=== PATIENT | female | born 1980 | race Two or more races ===

== ENCOUNTER 2024-10-03 05:24 | Inpatient (IN) | payer OTHER ==
[~2024-10-03] VITALS: Ht 162.6 cm; Wt 66.0 kg
[2024-10-03] MEDS: IPRATROPIUM BROM 0.5 MG/2.5ML INH SOL NEB ONE (05:44)
[2024-10-03] MEDS: ALBUTEROL SULF 2.5 MG/0.5ML(0.5%) NEB SOLN NEB ONE (05:44)
[2024-10-03] MEDS: NITROGLYCERIN 50MG/250ML 250 ML IV ONE (06:00)
[2024-10-03 06:37] VITALS: PULSE 67; RESP 10; O2SAT 98
[2024-10-03 06:37] LABS: Basophils # (auto) 0 10 ^3/uL (0-0.2); Eosinophils # (auto) 0.1 10 ^3/uL (0-0.8); Monocytes # (auto) 0.4 10 ^3/uL (0-1.3); White Blood Cell 5.1 10^3/uL (4.4-10.8)
--- NOTE | 2024-10-03 06:37 | DVH ---
CHEST RADIOGRAPH Indication: SOB Technique: Single frontal view of the chest was obtained Comparison: None IMPRESSION: There are low lung volumes with moderate pulmonary vascular congestion and bilateral alveolar airspac e opacities. No sizable effusion or pneumothorax. Right dialysis catheter within the cavoatrial junc tion.
[2024-10-03 06:39] LABS: Basophils % (auto) 0.6 % (0.0-2.0); Eosinophils % (auto) 1.3 % (0.0-7.0); Hematocrit 25.2 % (36.0-46.0); Lymphocytes # (auto) 0.7 10 ^3/uL (0.4-5.4); Lymphocytes % (auto) 12.7 % (10.0-50.0); Mean Corpuscular Hemoglobin 28.2 pg (28.0-32.0); Mean Corpuscular Hgb Conc. 31.6 g/dL (32.0-36.0); Mean Corpuscular Volume 89.3 fL (80.0-100.0); Monocytes % (auto) 8.1 % (0.0-12.0); Neutrophils % (auto) 77.3 % (37.0-80.0); Platelet Count (auto) 185 10^3/uL (140-450); Red Blood Cells 2.83 10^6/uL (4.0-5.20)
[2024-10-03 06:52] LABS: Alkaline Phosphatase 72 U/L (46-116); Anion Gap 5 (5-15); Aspartate Aminotransferase 14 U/L (13-40); BUN/Creatinine Ratio 5.5 (10.0-20.0); Calcium 9.6 mg/dL (8.7-10.4); Carbon Dioxide 28 mmol/L (20-31); Chloride 104 mmol/L (98-107); Potassium 4.3 mmol/L (3.5-5.1); Sodium 137 mmol/L (136-145)
[2024-10-03 06:53] LABS: Total Protein 6.7 g/dL (5.7-8.2)
[2024-10-03 06:57] LABS: INR 1.05 (0.9-1.15); Partial Thromboplastin Time 27.8 SEC (24.5-34.5); Prothrombin Time 11.1 sec (9.3-11.8)
--- NOTE | 2024-10-03 07:32 | ED.PDOC ---
History of Present Illness HPI Comments 43 y/o F, with a Hx of ESRD w/HD T//FRI, is BIBA for c/o chest pain and shortness of breath, today. Patient, at time of assessment, is tired-appearing and a poor-historian and endorses on sudden and unprovoked onset of symptoms last night. She states on pain and difficulty breathing subsiding since then but is unable to elaborate on whether she was given any Tx by EMS or ED staff prior to evaluation. Per EMS report, patient was found on scene with diminished lung sounds, with a SpO2 of 70%RA and placed on 15L O2 en route in addition to her last reported dialysis session being 10/02/24. Patient has no additional reported associated symptoms or modifiers. Further Hx cannot be obtained, currently, due to patient's condition and absence of family/separator tender historians. Chief Complaint: Shortness of Breath Time Seen by MD: 07:10 Reviewed Notes: Nurses Notes, Plsql Developer Notes, Medications, Allergies Allergies: Coded Allergies: NO KNOWN ALLERGIES (Unverified , 10/03/24) Information Source: Patient, Emergency Med Personnel Mode of Arrival: Ambulatory Severity: Moderate Timing: Hours Duration: Since onset Prehospital treatment: 12 Lead EKG, Bar Pointer, Oxygen Past Medical History PAST MEDICAL HISTORY: ESRD (w/HD //FRI) Surgical History: Denies all surgeries THERMOSTAT MAKER History: Denies all THERMOSTAT MAKER Hx Family History Family History: Unknown Social History Smoker: Non-Smoker Alcohol: Denies ETOH Use Drugs: Denies Drug Use Lives In: Home Respiratory: reports: shortness of breath Cardiovascular: reports: chest pain All Other Systems: Reviewed and Negative (negative unless otherwise stated above or in HPI) Physical Exam General Appearance: No Apparent Distress, Normal, Other (somnolent) HEENT: Normal ENT Inspection, Pharynx Normal, TMs Normal Neck: Full Range of Motion, Non-Tender, Normal, Normal Inspection Respiratory: Chest Non-Tender, Lungs Clear, No Accessory Muscle Use, No Respiratory Distress, Normal Breath Sounds Cardiovascular: No Edema, No JVD, No Murmur, No Gallop, Normal Peripheral Pulses, Regular Rate/Rhythm Breast Exam: Deferred Gastrointestinal: No Organomegaly, Non Tender, No Pulsatile Mass, Normal Bowel Sounds, Soft Genitalia: Deferred Pelvic: Deferred Rectal: Deferred Extremities: No calf tenderness, Normal capillary refill, Normal inspection, Normal range of motion, Non-tender, No pedal edema Musculoskeletal : Apperance: Normal Neurologic: Alert, mechanic welder II-XII nml as Tested, No Motor Deficits, Normal Affect, Normal Mood, No Sensory Deficits Cerebellar Function: Normal Reflexes: Normal Skin: Dry, Normal Color, Warm Lymphatic: No Adenopathy Was a procedure done? Was a procedure done?: No EKG EKG : Pulse Rate (adult): 69 [place]: Normal Cardiac Rhythm: NSR Block: None Hypertrophy: None ST: Normal Differential Dx Considerations may include: AL, PE, ACS, angina, costochondritis, pericarditis, gastritis, gastroenteritis, anxiety, musculoskeletal pain X-Ray, Labs, Meds, VS Vital Signs Date Time Temp Pulse Resp B/P (MAP) Pulse Ox O2 Delivery O2 Flow Rate FiO2 10/03/24 07:34 17 144/91 (108) 99 10/03/24 07:32 69 10/03/24 07:00 17 135/84 (101) 100 10/03/24 06:37 67 10 98 Nasal Cannula* 6 44 10/03/24 06:34 98.8 10 148/101 (117) 98.8 10/03/24 06:00 149/97 10/03/24 05:32 69 10/03/24 05:30 98.6 83 28 184/128 (146) 92 Lab Test 10/03/24 06:27 Range/Units White Blood Count 5.1 4.4-10.8 10^3/uL Red Blood Count 2.83 L 4.0-5.20 10^6/uL Hemoglobin 8.0 L 12.2-16.2 g/dL Hematocrit 25.2 L 36.0-46.0 % Mean Corpuscular Volume 89.3 80.0-100.0 fL Mean Corpuscular Hemoglobin 28.2 28.0-32.0 pg Mean Corpuscular Hemoglobin Concent 31.6 L 32.0-36.0 g/dL Red Cell Distribution Width 18.0 H 11.8-14.3 % Platelet Count 185 140-450 10^3/uL Mean Platelet Volume 7.6 6.9-10.8 fL Neutrophils (%) (Auto) 77.3 37.0-80.0 % Lymphocytes (%) (Auto) 12.7 10.0-50.0 % Monocytes (%) (Auto) 8.1 0.0-12.0 % Eosinophils (%) (Auto) 1.3 0.0-7.0 % Basophils (%) (Auto) 0.6 0.0-2.0 % Neutrophils # (Auto) 4.0 1.6-8.6 10 ^3/uL Lymphocytes # (Auto) 0.7 0.4-5.4 10 ^3/uL Monocytes # (Auto) 0.4 0-1.3 10 ^3/uL Eosinophils # (Auto) 0.1 0-0.8 10 ^3/uL Basophils # (Auto) 0 0-0.2 10 ^3/uL Nucleated Red Blood Cells 0.0 % Prothrombin Time 11.1 9.3-11.8 sec Prothrombin Time INR 1.05 0.9-1.15 Activated Partial Thromboplast Time 27.8 24.5-34.5 SEC Sodium Level 137 136-145 mmol/L Potassium Level 4.3 3.5-5.1 mmol/L Chloride Level 104 98-107 mmol/L Carbon Dioxide Level 28 20-31 mmol/L Anion Gap 5 5-15 Blood Urea Nitrogen 37 H 9-23 mg/dL Creatinine 6.76 H 0.550-1.02 mg/dL Glomerular Filtration Rate Calc 7 >90 mL/min BUN/Creatinine Ratio 5.5 L 10.0-20.0 Serum Glucose 116 H 74-106 mg/dL Calcium Level 9.6 8.7-10.4 mg/dL Total Bilirubin 0.2 0.2-1.0 mg/dL Aspartate Amino Transferase (AST) 14 13-40 U/L Alanine Aminotransferase (ALT) < 9 7-40 U/L Alkaline Phosphatase 72 46-116 U/L Troponin I High Sensitivity 27 </=34 ng/L B-Type Natriuretic Peptide > 5000.00 0-100 pg/mL Total Protein 6.7 5.7-8.2 g/dL Albumin 2.9 L 3.2-4.8 g/dL Current Medications Medications (Trade) Dose Ordered Sig/Susie Route Start Time Stop Time Status Last Admin Albuterol (Ventolin Medneb) 2.5 mg ONCE ONCE NEB 10/03/24 05:45 10/03/24 05:46 DC 10/03/24 05:44 Ipratropium [place] (Atrovent Medneb) 0.5 mg ONCE ONCE NEB 10/03/24 05:45 10/03/24 05:46 DC 10/03/24 05:[address] [address] Ph: [phone] DIAGNOSTIC IMAGING Diagnostic Imaging Report : [id number] Signed PATIENT: NOLAN DUTTON ACCT: [id number] UNIT: [id number] : 1980 LOC: ER ROOM / BED: / AGE / SEX: 43 / F ADM STATUS: REG ER SERVICE 0 ORDERING PHYSICIAN: ORACIO CABEZAS MD PROCEDURE(s): CXRP - CHEST PORTABLE REASON: SOB ORDER NUMBER(s): [id number], ACCESSION NUMBER(s): [id number] CHEST RADIOGRAPH Indication: SOB Technique: Single frontal view of the chest was obtained Comparison: None IMPRESSION: There are low lung volumes with moderate pulmonary vascular congestion and bilateral alveolar airspace opacities. No sizable effusion or pneumothorax. Right dialysis catheter within the cavoatrial junction. ATED BY: RENETTA DONG MD DICTATED DATE/TIME: 10/03/24635 SIGNED BY: RENETTA DONG MD SIGNED DATE/TIME: 10/03/24635 CC: X-Ray, Labs, Meds, VS Comment This 43-year-old female presents secondary to now resolved chest pain that began last night. The time I ED, the patient was somnolent but denied any complaints. She denies such things as headaches convincing, chest pain, shortness of breath, fever, chills, sweats, nausea or vomiting. Her work. Significant for a substantially elevated BNP greater than 5000. This is consistent with his history of being short of breath per EMS, Time of 1ST Reevaluation: 07:40 Reevaluation 1ST: Unchanged Patient Education/Counseling: Diagnosis, Treatment Family Education/Counseling: No Family Present Departure 1 Departure Impression: Primary Impression: CHF (congestive heart failure) Critical Care Note Critical Care Time?: No Stability Stability form required: No Heart Score Heart Score: Heart Score Response (Comments) Value History N/A 0 EKG N/A 0 Age N/A 0 Risk Factors N/A 0 Troponin N/A 0 Total 0 I personally scribed for MALOU TURCIOS MD ([email or web address]) on 10/03/24 at 07:32. Electronically submitted by John Chavez ([email or web address]). MALOU TURCIOS MD Oct 03, 2024 07:32
[2024-10-03 07:33] LABS: Blood Urea Nitrogen 37 mg/dL (9-23); Glucose 116 mg/dL (74-106)
[2024-10-03 07:34] LABS: Alanine Aminotransferase < 9 U/L (7-40); Albumin 2.9 g/dL (3.2-4.8); Bilirubin, Total 0.2 mg/dL (0.2-1.0)
[2024-10-03 09:14] LABS: Base Excess 2.3 mmol/L (-2.0-3.0)
[2024-10-03 09:20] VITALS: PULSE 59; RESP 16; O2SAT 99
[2024-10-03] MEDS ORDERED: ACETAMINOPHEN 325 MG TAB PO PRN (15:30)
[2024-10-03] MEDS ORDERED: HYDROcodone-ACET 5/325MG TAB PO PRN (15:30)
[2024-10-03] MEDS ORDERED: MORPHINE SULFATE INJ 2 MG/ml SYRG IV PRN (15:30)
[2024-10-03] MEDS ORDERED: ONDANSETRON HCL 4 MG/2 ML VIAL IV PRN (15:30)
--- NOTE | 2024-10-03 15:38 | DVHHP2 ---
History of Present Illness History of Present Illness 43 y/o F, with a Hx of ESRD w/HD T//SAT, is BIBA for c/o shortness of breath x1 day. Patient has been on dialysis for long time, most recently about 3 months ago was switched from PD dialysis to right IJ tunnel cath dialysis. Patient is from [place] traveling to visit family. She received dialysis on yesterday 10/02/2024 and was supposed to fly out back home today but developed shortness of breath at not feel safe to fly out. Shortness of bed started while trying to sleep. She had unprovoked onset of symptoms last night. She states on pain and difficulty breathing subsiding since then but is unable to elaborate on whether she was given any Tx by EMS or ED staff prior to evaluation. Per EMS report, patient was found on scene with diminished lung sounds, with a SpO2 of 70%RA and placed on 15L O2 en route in addition to her last reported dialysis session being 10/02/24. Patient has no additional reported associated symptoms or modifiers. Denies cough, nausea/vomiting, diarrhea/constipation, rashes, upper respiratory symptoms (rhinorrhea, sore throat, dry cough). Review of Systems Review of Systems As per HPI Allergies: Coded Allergies: NO KNOWN ALLERGIES (Unverified , 10/03/24) Exam Vital Signs Vital Signs Date Time Temp Pulse Resp B/P (MAP) Pulse Ox O2 Delivery O2 Flow Rate FiO2 10/03/24 14:30 55 17 154/94 (114) 97 10/03/24 09:30 97.5 97.5 10/03/24 09:20 Nasal Cannula* 2 28 Exam GEN: Healthy appearing, well-developed, NAD. HEENT: NC/AT; MMM. CV: RRR, no m/r/g. LUNGS: Rales up to middle lobes bilaterally ABD: Soft, NT/ND, NBS, no masses or organomegaly. EXT: skin Warm, well perfused. no rashes. Pitting edema trace to +1 bilaterally NEURO: Ambulating with no limitations. No focal deficits. Labs/Xrays Labs Test 10/03/24 09:05 10/03/24 08:10 10/03/24 06:27 Range/Units Blood Gas Specimen Type Arterial Blood Gas Sample Site Right radial Blood Gas Patient Temperature 37.0 Arterial Blood Date Drawn Arterial Blood pH 7.450 7.350-7.450 Arterial Blood Partial Pressure CO2 38.9 32.0-45.0 mmHg Arterial Blood Partial Pressure O2 98.7 83.0-108.0 mmHg Arterial Blood HCO3 26.4 21.0-28.0 mmol/L Arterial Blood Oxygen Saturation 97.0 94.0-98.0 % Arterial Blood Base Excess 2.3 -2.0-3.0 mmol/L Arterial Blood Oxyhemoglobin 95.6 94.0-98.0 % Arterial Blood Carboxyhemoglobin 0.5 0.5-1.5 % Arterial Blood Methemoglobin 0.9 0.0-1.5 % Josh Test Yes Blood Gas Total Hemoglobin 9.00 L 12.0-16.0 g/dL Blood Gas Liter Flow 2.00 Blood Gas Modality Nasal cannula FiO2 % 28.0 White Blood Count 5.1 4.4-10.8 10^3/uL Red Blood Count 2.83 L 4.0-5.20 10^6/uL Hemoglobin 8.0 L 12.2-16.2 g/dL Hematocrit 25.2 L 36.0-46.0 % Mean Corpuscular Volume 89.3 80.0-100.0 fL Mean Corpuscular Hemoglobin 28.2 28.0-32.0 pg Mean Corpuscular Hemoglobin Concent 31.6 L 32.0-36.0 g/dL Red Cell Distribution Width 18.0 H 11.8-14.3 % Platelet Count 185 140-450 10^3/uL Mean Platelet Volume 7.6 6.9-10.8 fL Neutrophils (%) (Auto) 77.3 37.0-80.0 % Lymphocytes (%) (Auto) 12.7 10.0-50.0 % Monocytes (%) (Auto) 8.1 0.0-12.0 % Eosinophils (%) (Auto) 1.3 0.0-7.0 % Basophils (%) (Auto) 0.6 0.0-2.0 % Neutrophils # (Auto) 4.0 1.6-8.6 10 ^3/uL Lymphocytes # (Auto) 0.7 0.4-5.4 10 ^3/uL Monocytes # (Auto) 0.4 0-1.3 10 ^3/uL Eosinophils # (Auto) 0.1 0-0.8 10 ^3/uL Basophils # (Auto) 0 0-0.2 10 ^3/uL Nucleated Red Blood Cells 0.0 % Prothrombin Time 11.1 9.3-11.8 sec Prothrombin Time INR 1.05 0.9-1.15 Activated Partial Thromboplast Time 27.8 24.5-34.5 SEC Sodium Level 137 136-145 mmol/L Potassium Level 4.3 3.5-5.1 mmol/L Chloride Level 104 98-107 mmol/L Carbon Dioxide Level 28 20-31 mmol/L Anion Gap 5 5-15 Blood Urea Nitrogen 37 H 9-23 mg/dL Creatinine 6.76 H 0.550-1.02 mg/dL Glomerular Filtration Rate Calc 7 >90 mL/min BUN/Creatinine Ratio 5.5 L 10.0-20.0 Serum Glucose 116 H 74-106 mg/dL Calcium Level 9.6 8.7-10.4 mg/dL Total Bilirubin 0.2 0.2-1.0 mg/dL Aspartate Amino Transferase (AST) 14 13-40 U/L Alanine Aminotransferase (ALT) < 9 7-40 U/L Alkaline Phosphatase 72 46-116 U/L Troponin I High Sensitivity 27 </=34 ng/L B-Type Natriuretic Peptide > 5000.00 0-100 pg/mL Total Protein 6.7 5.7-8.2 g/dL Albumin 2.9 L 3.2-4.8 g/dL Assessment/Plan Assessment/Plan #Acute hypoxic respiratory failure due to volume overload from ESRD - BNP more than 5000, CXR with pulmonary vascular congestion, on nasal cannula 2 L #ESRD on HD TTS #Anemia-likely from ESRD unknown baseline #Hypoalbuminemia (mild malnutrition) #Nausea and vomiting, decreased p.o. intake #Poorly controlled hypertension - patient does not make urine, no utility of loop diuretics - wean O2 after HD - Consult Nephrology, likely HD tomorrow - control hypertension with p.r.n. antihypertensives - Renal diet, restricted fluids p.o. 1.2 L - p.r.n. Antiemetics Diet renal GI prophylaxis tolerating diet DVT prophylaxis Lovenox Med surge Full code Plan discussed with: Patient My Orders Orders - ALAYNA MAE MD Procedure Category Date Status Time Admit ADMIT 10/03/24 Transmitted 15:26 Code Status CODE 10/03/24 Transmitted 15:26 Renal DIET 12/22/24 Transmitted Standard(2gna,3gk,Lopho) Dinner Hydrocodone-Acet PHA 10/03/24 Transmitted 5/325mg Tab ([place] 15:30 Ondansetron Hcl PHA 10/03/24 Transmitted (Zofran) 15:30 Enoxaparin Sodium PHA 10/04/24 Transmitted (Lovenox) 10:00 Complete Blood Count LAB 10/04/24 Verified 04:00 Comprehensive LAB 10/04/24 Verified Metabolic Panel 04:00 Acetaminophen Tablet PHA 10/03/24 Transmitted (Tylenol Tablet) 15:30 Bedrest With Bathroom NGOC 10/03/24 Transmitted Privileg 15:26 Morphine Sulfate PHA 10/03/24 Transmitted Injection 15:30 *[facility] CONS 10/03/24 Transmitted -[place] 15:26 Date of Service: Oct 03, 2024 Billing Provider: ALAYNA MAE MD Common Visit Codes: [id number] INP/OBS CARE (HIGH) ALAYNA MAE MD Oct 03, 2024 15:38
[2024-10-03 18:12] VITALS: BP_SYST 168; BP_SYST 169; BP_DIAS 101; PULSE 56; RESP 16; RESP 20; TEMP 97.7; O2SAT 100
[2024-10-03 20:00] VITALS: PULSE 55; RESP 20; O2SAT 100
[2024-10-03 21:00] VITALS: BP 162/99; PULSE 65; RESP 20; TEMP 98.3; O2SAT 99
[2024-10-03] MEDS: cloNIDine HCL 0.1 MG TAB PO ONE (21:45)
[2024-10-04] VITALS (7 sets, daily range): BP systolic 104–193; BP diastolic 74–113; PULSE 53–68; RESP 14–18; TEMP 97.5–98.4; O2SAT 95–100
[2024-10-04 07:03] LABS: Basophils # (auto) 0 10 ^3/uL (0-0.2); Basophils % (auto) 0.7 % (0.0-2.0); Eosinophils # (auto) 0.1 10 ^3/uL (0-0.8); Hematocrit 23.6 % (36.0-46.0); Monocytes # (auto) 0.4 10 ^3/uL (0-1.3)
[2024-10-04 07:06] LABS: Eosinophils % (auto) 3.6 % (0.0-7.0); Hemoglobin 7.5 g/dL (12.2-16.2); Lymphocytes % (auto) 26.9 % (10.0-50.0); Mean Corpuscular Hemoglobin 28.6 pg (28.0-32.0); Mean Corpuscular Hgb Conc. 31.7 g/dL (32.0-36.0); Monocytes % (auto) 10.3 % (0.0-12.0); Neutrophils # (auto) 2.2 10 ^3/uL (1.6-8.6); Neutrophils % (auto) 58.5 % (37.0-80.0); Nucleated Red Blood Cells % 0.1 %; Platelet Count (auto) 173 10^3/uL (140-450); Red Blood Cells 2.63 10^6/uL (4.0-5.20); Red Cell Distribution Width 17.4 % (11.8-14.3); White Blood Cell 3.7 10^3/uL (4.4-10.8)
[2024-10-04 07:14] LABS: Alkaline Phosphatase 62 U/L (46-116); Anion Gap 4 (5-15); BUN/Creatinine Ratio 5.4 (10.0-20.0); Calcium 9.4 mg/dL (8.7-10.4); Carbon Dioxide 30 mmol/L (20-31); Chloride 104 mmol/L (98-107); Glucose 86 mg/dL (74-106); Sodium 138 mmol/L (136-145)
[2024-10-04 07:15] LABS: Total Protein 6.3 g/dL (5.7-8.2)
[2024-10-04 07:16] LABS: Alanine Aminotransferase < 9 U/L (7-40); Albumin 2.7 g/dL (3.2-4.8); Aspartate Aminotransferase 9 U/L (13-40); Bilirubin, Total < 0.2 mg/dL (0.2-1.0); Blood Urea Nitrogen 47 mg/dL (9-23); Potassium 5.2 mmol/L (3.5-5.1)
[2024-10-04] MEDS ORDERED: ENOXAPARIN SOD 30 MG/0.3 ML SYRINGE SC SCH (10:00)
--- NOTE | 2024-10-04 11:42 | DVHPN2 ---
Subjective The patient is seen and examined at bedside. Complain of shortness for breath. Reviewed: Care Plan, H&P, Labs, Medications, Previous Orders, Radiology Changes from previous H/P or p: No Changes Objective Vitals Vital Signs Date Time Temp Pulse Resp B/P (MAP) Pulse Ox O2 Delivery O2 Flow Rate FiO2 10/04/24 08:18 97.5 53 16 150/92 (111) 100 97.5 10/03/24 20:00 Nasal Cannula* 2 28 General Appearance: Alert, Oriented X3, Cooperative, No acute distress HEENT: Atraumatic, PERRLA, EOMI, Mucous membr. moist/pink Neck: Supple Lungs: Clear to auscultation, Normal air movement Cardiovascular: Regular rate, Normal S1, Normal S2, No murmurs, Gallops, Rubs Abdomen: Normal bowel sounds, Soft, No tenderness, No hepatospenomegaly Neuro: Cranial nerves 3-12 NL Psych/Mental Status: Mental status NL Medications Current Medications Medications Dose Ordered Sig/Susie Route Start Time Stop Time Status Last Admin Dose Admin Acetaminophen/ Hydrocodone Bitart 1 tab Q4HP PRN PO 10/03/24 15:30 Ondansetron HCl 4 mg Q4HP PRN IV 10/03/24 15:30 Enoxaparin Sodium 30 mg DAILY SC 10/04/24 10:00 Acetaminophen 650 mg Q6HP PRN PO 10/03/24 15:30 Morphine Sulfate 2 mg Q4HPRN PRN IV 10/03/24 15:30 Laboratory Results Laboratory Tests 10/04/24 06:34 Chemistry Test 10/04/24 06:34 Albumin 2.7 g/dL (3.2-4.8) L Calcium Level 9.4 mg/dL (8.7-10.4) Total Protein 6.3 g/dL (5.7-8.2) LFT Test 10/04/24 06:34 Alanine Aminotransferase (ALT) < 9 U/L (7-40) Alkaline Phosphatase 62 U/L (46-116) Aspartate Amino Transferase (AST) 9 U/L (13-40) L Total Bilirubin < 0.2 mg/dL (0.2-1.0) L Labs and/or images reviewed: Labs reviewed by me Assessment/Plan Assessment/Plan #Acute hypoxic respiratory failure due to volume overload from ESRD - BNP more than 5000, CXR with pulmonary vascular congestion, on nasal cannula 2 L #ESRD on HD TTS #Anemia-likely from ESRD unknown baseline #Hypoalbuminemia (mild malnutrition) #Nausea and vomiting, decreased p.o. intake #Poorly controlled hypertension Continuing current management. Waiting for arranger assembler to see the patient. Hemodialysis per Nephrology. Continuing hypertensive medication and also p.r.n. medication. Continuing fluid restriction. Continuing with Zofran. We will monitor her hemoglobin. This medical document was created using an electronic medical record system with [email or web address] computerized dictation system. Although this document has been carefully reviewed, there may still be some phonetic and typographical errors. These areas are purely typographical due to imperfections of the software programs, and do not reflect any compromise in the patient's medical care. Plan discussed with: Patient Date of Service: Oct 04, 2024 Billing Provider: ROSALVA CARRILLO MD Common Visit Codes: [id number] INP/OBS CARE(HIGH) ROSALVA CARRILLO MD Oct 04, 2024 11:42
[2024-10-04] MEDS: ENOXAPARIN SOD 30 MG/0.3 ML SYRINGE SC SCH (12:15)
--- NOTE | 2024-10-04 12:33 | DVHINCON2 ---
Date of service: Oct 04, 2024 Referring Physician Hospitalist Reason for Consultation End-stage renal disease History of Present Illness 43-year-old female past medical history of hypertension and end-stage renal disease patient has had a living related donor kidney transplant 14 years ago by her sister which failed last year. She has been on peritoneal dialysis for the past year. And approximately three weeks ago patient had her peritoneal dialysis catheter removed due to severe peritonitis. And was transitioned to hemodialysis temporarily. Patient is visiting [place] from out of state and during the course of her vacation she reported two days after her hemodialysis treatment she had nausea vomiting and a systolic blood pressure greater than 200. This is the reason for admission. She was placed on nicardipine drip in the ER. She was transferred to the medical floor. Nephrology consulted for acute management. Her last hemodialysis treatment was on Friday Past Medical History htn esrd Past Surgical History pd catheter Allergies: Coded Allergies: NO KNOWN ALLERGIES (Unverified , 10/03/24) Current Medications Current Medications Medications (Trade) Dose Ordered Sig/Susie Route PRN Reason Start Time Stop Time Status Last Admin Acetaminophen/ Hydrocodone Bitart ([place] 5/325MG Tab) 1 tab Q4HP PRN PO MODERATE PAIN (4-6 PAIN SCALE) 10/03/24 15:30 Ondansetron HCl (Zofran) 4 mg Q4HP PRN IV NAUSEA / VOMITING 10/03/24 15:30 Enoxaparin Sodium (Lovenox) 30 mg DAILY SC 10/04/24 10:00 10/04/24 12:06 DC Acetaminophen (Tylenol Tablet) 650 mg Q6HP PRN PO PAIN SCALE 1-3 OR TEMP>100.4 10/03/24 15:30 Morphine Sulfate 2 mg Q4HPRN PRN IV SEVERE PAIN (7-10 PAIN SCALE) 10/03/24 15:30 Hydralazine HCl (Apresoline Injection) 10 mg Q6HP PRN IV SBP>160 10/04/24 12:00 Enoxaparin Sodium (Lovenox) 30 mg DAILY SC 10/04/24 12:15 Lisinopril (Zestril Tablet) 40 mg DAILY PO 10/04/24 16:00 UNV Family History: Patient reports no known family medical history. Review of Systems Chest pain and shortness of breath H&P Exam Vital Signs/I&O Vital Sign Date Time Temp Pulse Resp B/P (MAP) Pulse Ox O2 Delivery O2 Flow Rate FiO2 10/04/24 08:20 Nasal Cannula* 2 28 10/04/24 08:18 97.5 53 16 150/92 (111) 100 97.5 Physical Exam Middle-aged female Nonacute distress Breathing on nasal cannula No murmur Abdomen is soft no pitting edema Right tunneled chest hemodialysis catheter Labs/Diagnostic Data Labs/Diagnostic Data Laboratory Tests Test 10/04/24 06:34 10/03/24 09:05 10/03/24 08:10 10/03/24 06:27 Range/Units White Blood Count 3.7 #L 5.1 4.4-10.8 10^3/uL Red Blood Count 2.63 L 2.83 L 4.0-5.20 10^6/uL Hemoglobin 7.5 L 8.0 L 12.2-16.2 g/dL Hematocrit 23.6 L 25.2 L 36.0-46.0 % Mean Corpuscular Volume 90.0 89.3 80.0-100.0 fL Mean Corpuscular Hemoglobin 28.6 28.2 28.0-32.0 pg Mean Corpuscular Hemoglobin Concent 31.7 L 31.6 L 32.0-36.0 g/dL Red Cell Distribution Width 17.4 H 18.0 H 11.8-14.3 % Platelet Count 173 185 140-450 10^3/uL Mean Platelet Volume 8.2 7.6 6.9-10.8 fL Neutrophils (%) (Auto) 58.5 77.3 37.0-80.0 % Lymphocytes (%) (Auto) 26.9 12.7 10.0-50.0 % Monocytes (%) (Auto) 10.3 8.1 0.0-12.0 % Eosinophils (%) (Auto) 3.6 1.3 0.0-7.0 % Basophils (%) (Auto) 0.7 0.6 0.0-2.0 % Neutrophils # (Auto) 2.2 4.0 1.6-8.6 10 ^3/uL Lymphocytes # (Auto) 1.0 0.7 0.4-5.4 10 ^3/uL Monocytes # (Auto) 0.4 0.4 0-1.3 10 ^3/uL Eosinophils # (Auto) 0.1 0.1 0-0.8 10 ^3/uL Basophils # (Auto) 0 0 0-0.2 10 ^3/uL Nucleated Red Blood Cells 0.1 0.0 % Sodium Level 138 137 136-145 mmol/L Potassium Level 5.2 H 4.3 3.5-5.1 mmol/L Chloride Level 104 104 98-107 mmol/L Carbon Dioxide Level 30 28 20-31 mmol/L Anion Gap 4 L 5 5-15 Blood Urea Nitrogen 47 #H 37 H 9-23 mg/dL Creatinine 8.73 H 6.76 H 0.550-1.02 mg/dL Glomerular Filtration Rate Calc 5 7 >90 mL/min BUN/Creatinine Ratio 5.4 L 5.5 L 10.0-20.0 Serum Glucose 86 116 H 74-106 mg/dL Calcium Level 9.4 9.6 8.7-10.4 mg/dL Total Bilirubin < 0.2 L 0.2 0.2-1.0 mg/dL Aspartate Amino Transferase (AST) 9 L 14 13-40 U/L Alanine Aminotransferase (ALT) < 9 < 9 7-40 U/L Alkaline Phosphatase 62 72 46-116 U/L Total Protein 6.3 6.7 5.7-8.2 g/dL Albumin 2.7 L 2.9 L 3.2-4.8 g/dL Blood Gas Specimen Type Arterial Blood Gas Sample Site Right radial Blood Gas Patient Temperature 37.0 Arterial Blood Date Drawn [id number] Arterial Blood pH 7.450 7.350-7.450 Arterial Blood Partial Pressure CO2 38.9 32.0-45.0 mmHg Arterial Blood Partial Pressure O2 98.7 83.0-108.0 mmHg Arterial Blood HCO3 26.4 21.0-28.0 mmol/L Arterial Blood Oxygen Saturation 97.0 94.0-98.0 % Arterial Blood Base Excess 2.3 -2.0-3.0 mmol/L Arterial Blood Oxyhemoglobin 95.6 94.0-98.0 % Arterial Blood Carboxyhemoglobin 0.5 0.5-1.5 % Arterial Blood Methemoglobin 0.9 0.0-1.5 % Josh Test Yes Blood Gas Total Hemoglobin 9.00 L 12.0-16.0 g/dL Blood Gas Liter Flow 2.00 Blood Gas Modality Nasal cannula FiO2 % 28.0 Prothrombin Time 11.1 9.3-11.8 sec Prothrombin Time INR 1.05 0.9-1.15 Activated Partial Thromboplast Time 27.8 24.5-34.5 SEC Troponin I High Sensitivity 27 </=34 ng/L B-Type Natriuretic Peptide > 5000.00 0-100 pg/mL Assessment End-stage renal disease status post failed living related donor renal transplant, status post peritonitis now off those peritoneal dialysis. Now on temporary hemodialysis. Hypertensive emergency Anemia due to chronic kidney disease Hyperkalemia Resume lisinopril blood pressure medication Hemodialysis treatment today for metabolic and volume control 2 L removal as tolerated today Obtain renal diet Obtain phosphorus level Plan discussed with: Patient THERESA LACKEY MD Oct 04, 2024 12:33
[2024-10-04 13:17] LABS: % Iron Saturation 24.6 % (15-50)
[2024-10-04 14:03] LABS: Hepatitis A Ab IgM Negative; Hepatitis B Core IgM Negative (Negative); Hepatitis B Surface Antigen Negative (Negative); Hepatitis C Antibody Negative (Negative)
[2024-10-04] MEDS: LISINOPRIL 20 MG TAB PO SCH (16:00)
[2024-10-04] MEDS: hydrALAZINE HCL 20 MG/ML VL IV PRN (18:01)
[2024-10-04] MEDS: cloNIDine HCL 0.1 MG TAB PO ONE (21:45)
[2024-10-04] MEDS: EPOETIN ALFA-EPBX 10,000 UNIT/1ML VIAL SC ONE (21:51)
[2024-10-05] VITALS (12 sets, daily range): BP systolic 17–192; BP diastolic 91–128; PULSE 63–92; RESP 14–20; TEMP 97.4–98.8; O2SAT 95–98
[2024-10-05] MEDS: ONDANSETRON HCL 4 MG/2 ML VIAL IV PRN (02:33)
[2024-10-05] MEDS: HYDROcodone-ACET 5/325MG TAB PO PRN (02:33)
[2024-10-05] MEDS: hydrALAZINE HCL 20 MG/ML VL IV ONE ×2 (02:58→10:38)
[2024-10-05] MEDS: MORPHINE SULFATE INJ 2 MG/ml SYRG IV PRN (04:21)
[2024-10-05] MEDS ORDERED: LISI20TA56 PO (05:24)
[2024-10-05] MEDS ORDERED: METO1TAB9 PO (05:24)
[2024-10-05] MEDS: ACETAMINOPHEN 325 MG TAB PO PRN (06:32)
[2024-10-05 07:06] LABS: Anion Gap 10 (5-15); Carbon Dioxide 26 mmol/L (20-31); Chloride 100 mmol/L (98-107); Potassium 3.8 mmol/L (3.5-5.1)
[2024-10-05 07:07] LABS: Calcium 9.5 mg/dL (8.7-10.4)
[2024-10-05 07:12] LABS: BUN/Creatinine Ratio 4.4 (10.0-20.0)
[2024-10-05 07:14] LABS: Blood Urea Nitrogen 25 mg/dL (9-23); Glucose 107 mg/dL (74-106); Phosphorus 2.8 mg/dL (2.4-5.1); Sodium 136 mmol/L (136-145)
--- NOTE | 2024-10-05 07:56 | ECG ---
[facility] Test Date: 2024-10-03 Test Time: 05:32:03 Pat Name: NOLAN STAPLETON Department: ED Room: 0295 A Gender: F [employer]: [place] : 1980 Requested By: ORACIO CABEZAS Order Number: [id number] Reading MD: Richi Sims Measurements Intervals [place] Rate: 69 P: 40 NV: 145 QRS: 10 QRSD: 100 T: 52 QT: 461 QTc: 494 Interpretive Statements Sinus rhythm Left ventricular hypertrophy Borderline prolonged QT interval Electronically Signed On 10-05-2024 13:06:07 PST by Richi Sims Please click the below link to view image of tracing.
[2024-10-05] MEDS: SODIUM CHL 0.9% 1000 ML BAG XX ONE (07:57)
[2024-10-05] MEDS: METOPROLOL TARTRATE 50 MG TAB PO SCH (10:45)
--- NOTE | 2024-10-05 12:23 | DVHPN2 ---
Subjective The patient is seen and examined at bedside. Complain of severe headache, and vomiting. Blood pressure is 190/110 Reviewed: Care Plan, H&P, Labs, Medications, Previous Orders, Radiology Changes from previous H/P or p: No Changes Objective Vitals Vital Signs Date Time Temp Pulse Resp B/P (MAP) Pulse Ox O2 Delivery O2 Flow Rate FiO2 10/05/24 10:45 77 188/112 10/05/24 10:02 20 10/05/24 09:59 97.6 97 97.6 10/05/24 08:05 Room Air* 0 21 Intake/Output Intake and Output 10/05/24 07:00 Intake Total 730 ml Output Total 150 ml Balance 580 ml Intake Oral 730 ml Output Emesis 150 ml # Voids 1 General Appearance: Alert, Oriented X3, Cooperative, No acute distress HEENT: Atraumatic, PERRLA, EOMI, Mucous membr. moist/pink Neck: Supple Lungs: Clear to auscultation, Normal air movement Cardiovascular: Regular rate, Normal S1, Normal S2, No murmurs, Gallops, Rubs Abdomen: Normal bowel sounds, Soft, No tenderness, No hepatospenomegaly Neuro: Cranial nerves 3-12 NL Psych/Mental Status: Mental status NL Medications Current Medications Medications Dose Ordered Sig/Susie Route Start Time Stop Time Status Last Admin Dose Admin Hydralazine HCl 10 mg Q6HP PRN IV 10/04/24 12:00 10/05/24 08:56 10 MG Enoxaparin Sodium 30 mg DAILY SC 10/04/24 12:15 Lisinopril 40 mg DAILY PO 10/04/24 16:00 10/05/24 08:50 40 MG Acetaminophen/ Hydrocodone Bitart 1 tab Q4HP PRN PO 10/05/24 02:30 10/05/24 02:33 1 TAB Acetaminophen 650 mg Q6HP PRN PO 10/05/24 02:30 10/05/24 10:44 650 MG Ondansetron HCl 4 mg Q4HP PRN IV 10/05/24 02:30 10/05/24 09:54 4 MG Morphine Sulfate 2 mg Q4HPRN PRN IV 10/05/24 04:30 10/05/24 04:21 2 MG Metoprolol Tartrate 50 mg BID PO 10/05/24 10:00 10/05/24 10:45 50 MG Laboratory Results Laboratory Tests 10/04/24 06:34 10/05/24 05:57 Chemistry Test 10/05/24 05:57 Calcium Level 9.5 mg/dL (8.7-10.4) Phosphorus Level 2.8 mg/dL (2.4-5.1) Microbiology Microbiology Date/Time Source Procedure Growth Status 10/03/24 21:51 Nose MRSA Screen - Final Complete Labs and/or images reviewed: Labs reviewed by me Assessment/Plan Assessment/Plan #Acute hypoxic respiratory failure due to volume overload from ESRD - BNP more than 5000, CXR with pulmonary vascular congestion, on nasal cannula 2 L #ESRD on HD TTS #Anemia-likely from ESRD unknown baseline #Hypoalbuminemia (mild malnutrition) #Nausea and vomiting, decreased p.o. intake #Poorly controlled hypertension # severe headache Continuing current management. Waiting for complex case manager to see the patient. Hemodialysis per Nephrology. Continuing hypertensive medication and also p.r.n. medication. Continuing fluid restriction. Continuing with Zofran. We will monitor her hemoglobin. The patient had severe headache with intractable nausea or vomiting today. I am going to order a stat CT head to out acute CVA. I will give the patient one extra dose of hydralazine 10 mg IV push now. This medical document was created using an electronic medical record system with [employer] direct computerized dictation system. Although this document has been carefully reviewed, there may still be some phonetic and typographical errors. These areas are purely typographical due to imperfections of the software programs, and do not reflect any compromise in the patient's medical care. Plan discussed with: Patient Date of Service: Oct 05, 2024 Billing Provider: ROSALVA CARRILLO MD Common Visit Codes: [id number] INP/OBS CARE(HIGH) ROSALVA CARRILLO MD Oct 05, 2024 12:23
--- NOTE | 2024-10-05 12:37 | DVHPN2 ---
Progress Note Date Seen: Oct 05, 2024 Medical Necessity Reason Pt with a Central, PICC or Fol: No Subjective Review of Systems: CVS:Normal, GI:Normal Objective vital signs Vital Sign Date Time Temp Pulse Resp B/P (MAP) Pulse Ox O2 Delivery O2 Flow Rate FiO2 10/05/24 10:45 77 188/112 10/05/24 10:02 20 10/05/24 09:59 97.6 97 97.6 10/05/24 08:05 Room Air* 0 21 Total Intake and Output 10/04/24 10/04/24 10/05/24 15:00 23:00 07:00 Intake Total 480 ml 250 ml Output Total 150 ml Balance 480 ml 100 ml medications Current Medications Medications Dose Ordered Sig/Susie Route Start Time Stop Time Status Last Admin Dose Admin Hydralazine HCl 10 mg Q6HP PRN IV 10/04/24 12:00 10/05/24 08:56 10 MG Enoxaparin Sodium 30 mg DAILY SC 10/04/24 12:15 Lisinopril 40 mg DAILY PO 10/04/24 16:00 10/05/24 08:50 40 MG Acetaminophen/ Hydrocodone Bitart 1 tab Q4HP PRN PO 10/05/24 02:30 10/05/24 02:33 1 TAB Acetaminophen 650 mg Q6HP PRN PO 10/05/24 02:30 10/05/24 10:44 650 MG Ondansetron HCl 4 mg Q4HP PRN IV 10/05/24 02:30 10/05/24 09:54 4 MG Morphine Sulfate 2 mg Q4HPRN PRN IV 10/05/24 04:30 10/05/24 04:21 2 MG Metoprolol Tartrate 50 mg BID PO 10/05/24 10:00 10/05/24 10:45 50 MG Examination: GENERAL:Normal, HEENT:Normal, CVS:Normal laboratory and microbiology Laboratory Tests 10/05/24 05:57 10/04/24 06:34 Test 10/05/24 05:57 Range/Units Serum Glucose 107 H 74-106 mg/dL Microbiology Date/Time Source Procedure Growth Status 10/03/24 21:51 Nose MRSA Screen - Final Complete Problem List/Assessment/Plan Problem List/Assessment/Plan End-stage renal disease status post failed living related donor renal transplant, status post peritonitis off peritoneal dialysis 2 weeks ago. Now on temporary hemodialysis. Hypertensive emergency Anemia due to chronic kidney disease Hyperkalemia Resume lisinopril blood pressure medication resume metoprolol add CCB if unable to achieve BP control renal diet epogen during HD patient is out of area with a visiting dialysis unit, discharge to outpatient unit when BP controlled Plan discussed with: Patient My Orders My Orders Orders - THERESA LACKEY MD Procedure Category Date Status Time Metoprolol Tartrate PHA 10/05/24 In Process Tablet (Lopressor Ta 10:00 THERESA LACKEY MD Oct 05, 2024 12:37
--- NOTE | 2024-10-05 15:01 | DVH ---
EXAM: CT HEAD WITHOUT CONTRAST HISTORY: R/O mini stroke COMPARISON: None TECHNIQUE: Axial images of the head were obtained and reformatted in coronal and sagittal planes. All CT scans at this medical facility are performed using dose modulation techniques as appropriate t o a performed exam including the following: Automated exposure control was utilized; adjustment of th e MA and/or KV according to patient size; and use of iterative reconstruction technique. CT Dose: CTDI volume is 53.59 mGy. Dose-length product is 863.9 mGy*cm FINDINGS: There is no evidence of acute intracranial hemorrhage, mass, mass effect midline shift. There is no h ydrocephalus or extra-axial fluid collection. Carrizales-white matter differentiation is maintained. The visualized paranasal sinuses and mastoid air cells are clear. The calvarium is intact. IMPRESSION: 1. No acute intracranial process. HS:Y
[2024-10-05] MEDS ORDERED: SPIR25TA8 PO (20:31)
[2024-10-05] MEDS ORDERED: CALC667C PO (20:31)
[2024-10-05] MEDS ORDERED: ERGO2000 PO (20:31)
[2024-10-05] MEDS ORDERED: ESCI10TA PO (20:31)
[2024-10-05] MEDS ORDERED: CLON0.2D6 PO (20:31)
[2024-10-05] MEDS ORDERED: SEVE800T8 PO (20:31)
[2024-10-05] MEDS: cloNIDine HCL 0.1 MG TAB PO ONE (22:38)
[2024-10-06] VITALS (12 sets, daily range): BP systolic 144–210; BP diastolic 92–135; PULSE 67–88; RESP 18–20; TEMP 97.9–98.9; O2SAT 96–100
[2024-10-06] MEDS ORDERED: SODIUM CHL 0.9% 1000 ML BAG XX ONE (07:00)
[2024-10-06 07:45] LABS: Hematocrit 28.5 % (36.0-46.0); Hemoglobin 9.2 g/dL (12.2-16.2)
[2024-10-06 07:52] LABS: Chloride 100 mmol/L (98-107); Potassium 4.1 mmol/L (3.5-5.1); Sodium 139 mmol/L (136-145)
[2024-10-06 07:53] LABS: Anion Gap 13 (5-15); Calcium 10.1 mg/dL (8.7-10.4); Carbon Dioxide 26 mmol/L (20-31)
[2024-10-06 07:58] LABS: BUN/Creatinine Ratio 3.7 (10.0-20.0); Glucose 77 mg/dL (74-106)
[2024-10-06 08:00] LABS: Blood Urea Nitrogen 32 mg/dL (9-23)
--- NOTE | 2024-10-06 08:33 | DVHPN2 ---
Subjective The patient is seen and examined at bedside. The patient said she had no headache today. No vomitus. Reviewed: Care Plan, H&P, Labs, Medications, Previous Orders, Radiology Changes from previous H/P or p: No Changes Objective Vitals Vital Signs Date Time Temp Pulse Resp B/P (MAP) Pulse Ox O2 Delivery O2 Flow Rate FiO2 10/06/24 06:42 85 163/102 (122) 10/06/24 05:00 98.9 20 100 98.9 10/05/24 20:00 Room Air* 0 21 Intake/Output Intake and Output 10/06/24 07:00 Intake Total 680 ml Output Total 1300 ml Balance -620 ml Intake Oral 680 ml Output Urine Total 1100 ml Emesis 200 ml General Appearance: Alert, Oriented X3, Cooperative, No acute distress HEENT: Atraumatic, PERRLA, EOMI, Mucous membr. moist/pink Neck: Supple Lungs: Clear to auscultation, Normal air movement Cardiovascular: Regular rate, Normal S1, Normal S2, No murmurs, Gallops, Rubs Abdomen: Normal bowel sounds, Soft, No tenderness, No hepatospenomegaly Neuro: Cranial nerves 3-12 NL Psych/Mental Status: Mental status NL Medications Current Medications Medications Dose Ordered Sig/Susie Route Start Time Stop Time Status Last Admin Dose Admin Hydralazine HCl 10 mg Q6HP PRN IV 10/04/24 12:00 10/06/24 04:36 10 MG Enoxaparin Sodium 30 mg DAILY SC 10/04/24 12:15 Lisinopril 40 mg DAILY PO 10/04/24 16:00 10/05/24 08:50 40 MG Acetaminophen/ Hydrocodone Bitart 1 tab Q4HP PRN PO 10/05/24 02:30 10/05/24 02:33 1 TAB Acetaminophen 650 mg Q6HP PRN PO 10/05/24 02:30 10/05/24 20:47 650 MG Ondansetron HCl 4 mg Q4HP PRN IV 10/05/24 02:30 10/06/24 04:32 4 MG Morphine Sulfate 2 mg Q4HPRN PRN IV 10/05/24 04:30 10/05/24 04:21 2 MG Metoprolol Tartrate 50 mg BID PO 10/05/24 10:00 10/05/24 20:47 50 MG Laboratory Results Laboratory Tests 10/04/24 06:34 10/06/24 06:49 Chemistry Test 10/06/24 06:49 Calcium Level 10.1 mg/dL (8.7-10.4) Microbiology Microbiology Date/Time Source Procedure Growth Status 10/03/24 21:51 Nose MRSA Screen - Final Complete Labs and/or images reviewed: Labs reviewed by me Assessment/Plan Assessment/Plan #Acute hypoxic respiratory failure due to volume overload from ESRD - BNP more than 5000, CXR with pulmonary vascular congestion, on nasal cannula 2 L #ESRD on HD TTS #Anemia-likely from ESRD unknown baseline #Hypoalbuminemia (mild malnutrition) #Nausea and vomiting, decreased p.o. intake #Poorly controlled hypertension # severe headache Continuing current management. Continuing with the hypertensive medication and also p.r.n. medication. The patient's blood pressure remained high. Waiting for hemodialysis today. Planning to discharge the patient after dialysis done. This medical document was created using an electronic medical record system with [employer] direct computerized dictation system. Although this document has been carefully reviewed, there may still be some phonetic and typographical errors. These areas are purely typographical due to imperfections of the software programs, and do not reflect any compromise in the patient's medical care. Plan discussed with: Patient My Orders Orders - ROSALVA CARRILLO MD Procedure Category Date Status Time Head Without Contrast CT 10/05/24 Resulted 13:28 Date of Service: Oct 06, 2024 Billing Provider: ROSALVA CARRILLO MD Common Visit Codes: [id number] INP/OBS CARE(HIGH) ROSALVA CARRILLO MD Oct 06, 2024 08:33
--- NOTE | 2024-10-06 11:52 | DVHPN2 ---
Progress Note Date Seen: Oct 06, 2024 Medical Necessity Reason Pt with a Central, PICC or Fol: No Subjective Other Systems: Patient seen and examined by myself today in follow-up Patient examined hemodialysis, Objective vital signs Vital Sign Date Time Temp Pulse Resp B/P (MAP) Pulse Ox O2 Delivery O2 Flow Rate FiO2 10/06/24 09:56 185/114 10/06/24 09:55 76 10/06/24 09:00 97.9 19 96 97.9 10/06/24 08:15 Room Air* 0 21 Total Intake and Output 10/05/24 10/05/24 10/06/24 15:00 23:00 07:00 Intake Total 240 ml 240 ml 200 ml Output Total 1100 ml 200 ml Balance 240 ml -860 ml 0 ml medications Current Medications Medications Dose Ordered Sig/Susie Route Start Time Stop Time Status Last Admin Dose Admin Hydralazine HCl 10 mg Q6HP PRN IV 10/04/24 12:00 10/06/24 04:36 10 MG Enoxaparin Sodium 30 mg DAILY SC 10/04/24 12:15 10/06/24 09:56 30 MG Lisinopril 40 mg DAILY PO 10/04/24 16:00 10/06/24 09:56 40 MG Acetaminophen/ Hydrocodone Bitart 1 tab Q4HP PRN PO 10/05/24 02:30 10/05/24 02:33 1 TAB Acetaminophen 650 mg Q6HP PRN PO 10/05/24 02:30 10/05/24 20:47 650 MG Ondansetron HCl 4 mg Q4HP PRN IV 10/05/24 02:30 10/06/24 04:32 4 MG Morphine Sulfate 2 mg Q4HPRN PRN IV 10/05/24 04:30 10/05/24 04:21 2 MG Metoprolol Tartrate 50 mg BID PO 10/05/24 10:00 10/06/24 09:55 50 MG Examination: LUNGS:Normal, CVS:Normal, MSK:Normal laboratory and microbiology Laboratory Tests 10/06/24 06:49 10/04/24 06:34 Test 10/06/24 06:49 Range/Units Serum Glucose 77 74-106 mg/dL Microbiology Date/Time Source Procedure Growth Status 10/03/24 21:51 Nose MRSA Screen - Final Complete Problem List/Assessment/Plan Problem List/Assessment/Plan End-stage renal disease visiting from out of state Hypertensive urgency Anemia of chronic of chronic kidney disease Recommendations Continue with UF to 3 L as tolerated Epogen 49340 IV post hemodialysis Start hydralazine 50 mg p.o. t.i.d. for Blood pressure control Renal diet We will continue to follow up Plan discussed with: Patient, Spouse EDIE HERMAN MD Oct 06, 2024 11:52
--- NOTE | 2024-10-06 13:01 | DVHDS2 ---
Discharge Summary Date of Admission Oct 03, 2024 at 15:26 Date of Discharge: Oct 06, 2024 Labs/Diagnostic Data: Laboratory Results Test 10/06/24 06:49 10/05/24 05:57 10/04/24 06:34 10/03/24 09:05 Hemoglobin 9.2 g/dL (12.2-16.2) Hematocrit 28.5 % (36.0-46.0) Sodium Level 139 mmol/L (136-145) Potassium Level 4.1 mmol/L (3.5-5.1) Chloride Level 100 mmol/L (98-107) Carbon Dioxide Level 26 mmol/L (20-31) Anion Gap 13 (5-15) Blood Urea Nitrogen 32 mg/dL (9-23) Creatinine 8.58 mg/dL (0.550-1.02) Glomerular Filtration Rate Calc 5 mL/min (>90) BUN/Creatinine Ratio 3.7 (10.0-20.0) Serum Glucose 77 mg/dL (74-106) Calcium Level 10.1 mg/dL (8.7-10.4) Phosphorus Level 2.8 mg/dL (2.4-5.1) White Blood Count 3.7 10^3/uL (4.4-10.8) Red Blood Count 2.63 10^6/uL (4.0-5.20) Mean Corpuscular Volume 90.0 fL (80.0-100.0) Mean Corpuscular Hemoglobin 28.6 pg (28.0-32.0) Mean Corpuscular Hemoglobin Concent 31.7 g/dL (32.0-36.0) Red Cell Distribution Width 17.4 % (11.8-14.3) Platelet Count 173 10^3/uL (140-450) Mean Platelet Volume 8.2 fL (6.9-10.8) Neutrophils (%) (Auto) 58.5 % (37.0-80.0) Lymphocytes (%) (Auto) 26.9 % (10.0-50.0) Monocytes (%) (Auto) 10.3 % (0.0-12.0) Eosinophils (%) (Auto) 3.6 % (0.0-7.0) Basophils (%) (Auto) 0.7 % (0.0-2.0) Neutrophils # (Auto) 2.2 10 ^3/uL (1.6-8.6) Lymphocytes # (Auto) 1.0 10 ^3/uL (0.4-5.4) Monocytes # (Auto) 0.4 10 ^3/uL (0-1.3) Eosinophils # (Auto) 0.1 10 ^3/uL (0-0.8) Basophils # (Auto) 0 10 ^3/uL (0-0.2) Nucleated Red Blood Cells 0.1 % Iron Level 44 ug/dL (50-170) Total Iron Binding Capacity 179 ug/dL (250-425) Percent Iron Saturation 24.6 % (15-50) Ferritin 358.3 ng/mL (10-291) Total Bilirubin < 0.2 mg/dL (0.2-1.0) Aspartate Amino Transferase (AST) 9 U/L (13-40) Alanine Aminotransferase (ALT) < 9 U/L (7-40) Alkaline Phosphatase 62 U/L (46-116) Total Protein 6.3 g/dL (5.7-8.2) Albumin 2.7 g/dL (3.2-4.8) Hepatitis A IgM Antibody Negative Hepatitis B Surface Antigen Negative (Negative) Hepatitis B Core IgM Antibody Negative (Negative) Hepatitis C Antibody Negative (Negative) Blood Gas Specimen Type Arterial Blood Gas Sample Site Right radial Blood Gas Patient Temperature 37.0 Arterial Blood Date Drawn [id number] Arterial Blood pH 7.450 (7.350-7.450) Arterial Blood Partial Pressure CO2 38.9 mmHg (32.0-45.0) Arterial Blood Partial Pressure O2 98.7 mmHg (83.0-108.0) Arterial Blood HCO3 26.4 mmol/L (21.0-28.0) Arterial Blood Oxygen Saturation 97.0 % (94.0-98.0) Arterial Blood Base Excess 2.3 mmol/L (-2.0-3.0) Arterial Blood Oxyhemoglobin 95.6 % (94.0-98.0) Arterial Blood Carboxyhemoglobin 0.5 % (0.5-1.5) Arterial Blood Methemoglobin 0.9 % (0.0-1.5) Josh Test Yes Blood Gas Total Hemoglobin 9.00 g/dL (12.0-16.0) Blood Gas Liter Flow 2.00 Blood Gas Modality Nasal cannula FiO2 % 28.0 Test 10/03/24 08:10 10/03/24 06:27 Prothrombin Time 11.1 sec (9.3-11.8) Prothrombin Time INR 1.05 (0.9-1.15) Activated Partial Thromboplast Time 27.8 SEC (24.5-34.5) Troponin I High Sensitivity 27 ng/L (</=34) B-Type Natriuretic Peptide > 5000.00 pg/mL (0-100) Other Laboratory Tests 10/06/24 06:49 10/04/24 06:34 Final Diagnosis/Problems List Volume overload Discharge Disposition: Home Discharge Instruct/Medications Diet: Renal Activity: No Restrictions, As Tolerated Follow Up/Referral: pcp 1-2 weeks HD with manager solution per schedule Medications: Resume home meds Discharge Statement: "Patient was advised to return to the ER or call 911 if any headaches, dizziness, shortness of breath, chest pain, abdominal pain, bleeding, fevers, or worsening of medical condition. Patient was counseled about treatment plan, medications, possible side effects, patientverbalized understanding. All questions were answered to the best of my ability. This discharge took greater then 30 minutes in planning, reviewing documentation, counseling the patient, and discussing with other team members." ASSESSMENT ASSESSMENT Assessment Volume overload ROSALVA CARRILLO MD Oct 06, 2024 13:01
[2024-10-06] MEDS: hydrALAZINE HCL 25 MG TAB PO SCH ×2 (13:08→21:24)
[2024-10-06] MEDS ORDERED: hydrALAZINE HCL 25 MG TAB PO SCH (14:00)
[2024-10-06] MEDS: EPOETIN ALFA-EPBX 10,000 UNIT/1ML VIAL SC ONE (21:00)
[2024-10-06] MEDS: NIFEdipine ER 30 MG TAB PO ONE (21:23)
[2024-10-06] MEDS: MELATONIN 5 MG TAB PO ONE (21:24)
[2024-10-07 01:00] VITALS: BP 179/110; PULSE 93; RESP 17; TEMP 97.7; O2SAT 96
[2024-10-07] MEDS: cloNIDine HCL 0.1 MG TAB PO ONE (01:23)
[2024-10-07 05:00] VITALS: BP_SYST 117; BP_SYST 121; BP_DIAS 69; BP_DIAS 85; PULSE 93; PULSE 94; RESP 18; TEMP 97.7; O2SAT 95; O2SAT 97
[2024-10-07 08:00] VITALS: PULSE 90; PULSE 99; RESP 18; O2SAT 97
[2024-10-07 09:00] VITALS: BP 118/75; PULSE 93; RESP 14; TEMP 98.2; O2SAT 95
[2024-10-07] MEDS: NIFEdipine ER 30 MG TAB PO SCH (10:25)
--- NOTE | 2024-10-07 11:51 | DVHPN2 ---
Progress Note Date Seen: Oct 07, 2024 Medical Necessity Reason Pt with a Central, PICC or Fol: No Subjective Patient reports: No new complaints Objective vital signs Vital Sign Date Time Temp Pulse Resp B/P (MAP) Pulse Ox O2 Delivery O2 Flow Rate FiO2 10/07/24 10:26 90 125/79 10/07/24 09:00 98.2 14 95 98.2 10/07/24 08:00 Room Air* 0 21 Total Intake and Output 10/06/24 10/06/24 10/07/24 15:00 23:00 07:00 Intake Total 240 ml 800 ml Balance 240 ml 800 ml medications Current Medications Medications Dose Ordered Sig/Susie Route Start Time Stop Time Status Last Admin Dose Admin Hydralazine HCl 10 mg Q6HP PRN IV 10/04/24 12:00 10/06/24 23:58 10 MG Enoxaparin Sodium 30 mg DAILY SC 10/04/24 12:15 10/07/24 10:27 30 MG Lisinopril 40 mg DAILY PO 10/04/24 16:00 10/06/24 09:56 40 MG Acetaminophen/ Hydrocodone Bitart 1 tab Q4HP PRN PO 10/05/24 02:30 10/05/24 02:33 1 TAB Acetaminophen 650 mg Q6HP PRN PO 10/05/24 02:30 10/05/24 20:47 650 MG Ondansetron HCl 4 mg Q4HP PRN IV 10/05/24 02:30 10/07/24 01:23 4 MG Morphine Sulfate 2 mg Q4HPRN PRN IV 10/05/24 04:30 10/06/24 22:54 2 MG Metoprolol Tartrate 50 mg BID PO 10/05/24 10:00 10/07/24 10:26 50 MG Hydralazine HCl 50 mg Q6HR PO 10/06/24 20:30 10/07/24 06:14 50 MG Nifedipine 60 mg DAILY PO 10/07/24 10:00 10/07/24 10:25 60 MG Examination: LUNGS:Normal, CVS:Normal, MSK:Normal laboratory and microbiology Laboratory Tests 10/06/24 06:49 10/04/24 06:34 Test 10/06/24 06:49 Range/Units Serum Glucose 77 74-106 mg/dL Microbiology Date/Time Source Procedure Growth Status 10/03/24 21:51 Nose MRSA Screen - Final Complete Problem List/Assessment/Plan Problem List/Assessment/Plan End-stage renal disease visiting [place] Hypertensive urgency Anemia of chronic of chronic kidney disease Recommendations Hemodialysis tomorrow Epogen 03629 IV post hemodialysis Blood pressure improved with hydralazine p.o. Renal diet We will continue to follow up Plan discussed with: Patient, Spouse My Orders My Orders Orders - EDIE HERMAN MD Procedure Category Date Status Time Hemodialysis Orders ORDERS 10/06/24 Transmitted 11:51 EDIE HERMAN MD Oct 07, 2024 11:51
[2024-10-07 12:16] VITALS: BP 125/79; PULSE 90; RESP 19; TEMP 98.7; O2SAT 95
[2024-10-07 12:47] VITALS: BP 119/74; PULSE 80; RESP 14; TEMP 98.5; O2SAT 96
[2024-10-07] MEDS ORDERED: HYDR50TA47 PO (12:58)
--- NOTE | 2024-10-07 12:59 | DVHPN2 ---
Reviewed: Care Plan, H&P, Labs, Medications, Previous Orders, Radiology Changes from previous H/P or p: No Changes Objective Vitals Vital Signs Date Time Temp Pulse Resp B/P (MAP) Pulse Ox O2 Delivery O2 Flow Rate FiO2 10/07/24 12:47 98.5 80 14 119/74 (89) 96 98.5 10/07/24 08:00 Room Air* 0 21 Intake/Output Intake and Output 10/07/24 07:00 Intake Total 1040 ml Balance 1040 ml Intake Oral 1040 ml # Voids 7 # Bowel Movements 2 General Appearance: Alert, Oriented X3, Cooperative, No acute distress HEENT: Atraumatic, PERRLA, EOMI, Mucous membr. moist/pink Neck: Supple Lungs: Clear to auscultation, Normal air movement Cardiovascular: Regular rate, Normal S1, Normal S2, No murmurs, Gallops, Rubs Abdomen: Normal bowel sounds, Soft, No tenderness, No hepatospenomegaly Neuro: Cranial nerves 3-12 NL Psych/Mental Status: Mental status NL Medications Current Medications Medications Dose Ordered Sig/Susie Route Start Time Stop Time Status Last Admin Dose Admin Hydralazine HCl 10 mg Q6HP PRN IV 10/04/24 12:00 10/06/24 23:58 10 MG Enoxaparin Sodium 30 mg DAILY SC 10/04/24 12:15 10/07/24 10:27 30 MG Lisinopril 40 mg DAILY PO 10/04/24 16:00 10/06/24 09:56 40 MG Acetaminophen/ Hydrocodone Bitart 1 tab Q4HP PRN PO 10/05/24 02:30 10/05/24 02:33 1 TAB Acetaminophen 650 mg Q6HP PRN PO 10/05/24 02:30 10/05/24 20:47 650 MG Ondansetron HCl 4 mg Q4HP PRN IV 10/05/24 02:30 10/07/24 01:23 4 MG Morphine Sulfate 2 mg Q4HPRN PRN IV 10/05/24 04:30 10/06/24 22:54 2 MG Metoprolol Tartrate 50 mg BID PO 10/05/24 10:00 10/07/24 10:26 50 MG Hydralazine HCl 50 mg Q6HR PO 10/06/24 20:30 10/07/24 06:14 50 MG Nifedipine 60 mg DAILY PO 10/07/24 10:00 10/07/24 10:25 60 MG Laboratory Results Laboratory Tests 10/04/24 06:34 10/06/24 06:49 Microbiology Microbiology Date/Time Source Procedure Growth Status 10/03/24 21:51 Nose MRSA Screen - Final Complete Labs and/or images reviewed: Labs reviewed by me, Image(s) reviewed by me Assessment/Plan Assessment/Plan Covering for Dr Perera #Acute hypoxic respiratory failure due to volume overload from ESRD - BNP more than 5000, CXR with pulmonary vascular congestion, on nasal cannula 2 L #ESRD on HD TTS # anemia of chronic disease #Hypoalbuminemia (mild malnutrition) #Nausea and vomiting, decreased p.o. intake # uncontrolled hypertension # severe headache Patient is from [place] and requesting to be discharged home Vitals are stable patient being discharged Plan discussed with: Patient Date of Service: Oct 07, 2024 Billing Provider: SUNSHINE DENTON MD Common Visit Codes: [id number] INP/OBS CARE(HIGH) SUNSHINE DENTON MD Oct 07, 2024 12:59
--- NOTE | 2024-10-07 13:03 | DVHDS2 ---
Discharge Summary Date of Admission Oct 03, 2024 at 15:26 Date of Discharge: Oct 07, 2024 Admitting Diagnosis Headache Wounds: Hemodialysis Labs/Diagnostic Data: Laboratory Results Test 10/06/24 06:49 10/05/24 05:57 10/04/24 06:34 10/03/24 09:05 Hemoglobin 9.2 g/dL (12.2-16.2) Hematocrit 28.5 % (36.0-46.0) Sodium Level 139 mmol/L (136-145) Potassium Level 4.1 mmol/L (3.5-5.1) Chloride Level 100 mmol/L (98-107) Carbon Dioxide Level 26 mmol/L (20-31) Anion Gap 13 (5-15) Blood Urea Nitrogen 32 mg/dL (9-23) Creatinine 8.58 mg/dL (0.550-1.02) Glomerular Filtration Rate Calc 5 mL/min (>90) BUN/Creatinine Ratio 3.7 (10.0-20.0) Serum Glucose 77 mg/dL (74-106) Calcium Level 10.1 mg/dL (8.7-10.4) Phosphorus Level 2.8 mg/dL (2.4-5.1) White Blood Count 3.7 10^3/uL (4.4-10.8) Red Blood Count 2.63 10^6/uL (4.0-5.20) Mean Corpuscular Volume 90.0 fL (80.0-100.0) Mean Corpuscular Hemoglobin 28.6 pg (28.0-32.0) Mean Corpuscular Hemoglobin Concent 31.7 g/dL (32.0-36.0) Red Cell Distribution Width 17.4 % (11.8-14.3) Platelet Count 173 10^3/uL (140-450) Mean Platelet Volume 8.2 fL (6.9-10.8) Neutrophils (%) (Auto) 58.5 % (37.0-80.0) Lymphocytes (%) (Auto) 26.9 % (10.0-50.0) Monocytes (%) (Auto) 10.3 % (0.0-12.0) Eosinophils (%) (Auto) 3.6 % (0.0-7.0) Basophils (%) (Auto) 0.7 % (0.0-2.0) Neutrophils # (Auto) 2.2 10 ^3/uL (1.6-8.6) Lymphocytes # (Auto) 1.0 10 ^3/uL (0.4-5.4) Monocytes # (Auto) 0.4 10 ^3/uL (0-1.3) Eosinophils # (Auto) 0.1 10 ^3/uL (0-0.8) Basophils # (Auto) 0 10 ^3/uL (0-0.2) Nucleated Red Blood Cells 0.1 % Iron Level 44 ug/dL (50-170) Total Iron Binding Capacity 179 ug/dL (250-425) Percent Iron Saturation 24.6 % (15-50) Ferritin 358.3 ng/mL (10-291) Total Bilirubin < 0.2 mg/dL (0.2-1.0) Aspartate Amino Transferase (AST) 9 U/L (13-40) Alanine Aminotransferase (ALT) < 9 U/L (7-40) Alkaline Phosphatase 62 U/L (46-116) Total Protein 6.3 g/dL (5.7-8.2) Albumin 2.7 g/dL (3.2-4.8) Hepatitis A IgM Antibody Negative Hepatitis B Surface Antigen Negative (Negative) Hepatitis B Core IgM Antibody Negative (Negative) Hepatitis C Antibody Negative (Negative) Blood Gas Specimen Type Arterial Blood Gas Sample Site Right radial Blood Gas Patient Temperature 37.0 Arterial Blood Date Drawn [id number] Arterial Blood pH 7.450 (7.350-7.450) Arterial Blood Partial Pressure CO2 38.9 mmHg (32.0-45.0) Arterial Blood Partial Pressure O2 98.7 mmHg (83.0-108.0) Arterial Blood HCO3 26.4 mmol/L (21.0-28.0) Arterial Blood Oxygen Saturation 97.0 % (94.0-98.0) Arterial Blood Base Excess 2.3 mmol/L (-2.0-3.0) Arterial Blood Oxyhemoglobin 95.6 % (94.0-98.0) Arterial Blood Carboxyhemoglobin 0.5 % (0.5-1.5) Arterial Blood Methemoglobin 0.9 % (0.0-1.5) Josh Test Yes Blood Gas Total Hemoglobin 9.00 g/dL (12.0-16.0) Blood Gas Liter Flow 2.00 Blood Gas Modality Nasal cannula FiO2 % 28.0 Test 10/03/24 08:10 10/03/24 06:27 Prothrombin Time 11.1 sec (9.3-11.8) Prothrombin Time INR 1.05 (0.9-1.15) Activated Partial Thromboplast Time 27.8 SEC (24.5-34.5) Troponin I High Sensitivity 27 ng/L (</=34) B-Type Natriuretic Peptide > 5000.00 pg/mL (0-100) Other Laboratory Tests 10/06/24 06:49 10/04/24 06:34 Brief Hx & Hospital Course: Covering for Dr. Perera 43 yrr old female with a hypotension severe headache anemia of chronic disease ESRD on hemodialysis visiting here from [place] came in complaining of shortness of breaths found to have fluid overload secondary to missed dialysis patient received hemodialysis seen by Nephrology . Uncontrolled blood pressure controlled with the medications. The patient being discharged home in stable condition prescription transmitted to the pharmacy Consults/Reason for consult Nephrology Dr. Sarmiento Operations or Procedures Hemodialysis Condition at Discharge: Fair Final Diagnosis/Problems List #Acute hypoxic respiratory failure due to volume overload from ESRD - BNP more than 5000, CXR with pulmonary vascular congestion, on nasal cannula 2 L #ESRD on HD TTS # anemia of chronic disease #Hypoalbuminemia (mild malnutrition) #Nausea and vomiting, decreased p.o. intake # uncontrolled hypertension # severe headache Discharge Disposition: Home Discharge Instruct/Medications Diet: Renal Activity: No Restrictions, As Tolerated Follow Up/Referral: pcp 1-2 weeks HD with dairy inspector per schedule Medications: Resume home meds 39 (Time Taken For discharge summary 39 minutes) Discharge Statement: "Patient was advised to return to the ER or call 911 if any headaches, dizziness, shortness of breath, chest pain, abdominal pain, bleeding, fevers, or worsening of medical condition. Patient was counseled about treatment plan, medications, possible side effects, patientverbalized understanding. All questions were answered to the best of my ability. This discharge took greater then 30 minutes in planning, reviewing documentation, counseling the patient, and discussing with other team members." ASSESSMENT ASSESSMENT Hospital Course Improved Assessment #Acute hypoxic respiratory failure due to volume overload from ESRD - BNP more than 5000, CXR with pulmonary vascular congestion, on nasal cannula 2 L #ESRD on HD TTS # anemia of chronic disease #Hypoalbuminemia (mild malnutrition) #Nausea and vomiting, decreased p.o. intake # uncontrolled hypertension # severe headache Date of Service: Oct 07, 2024 Billing Provider: SUNSHINE DENTON MD Common Visit Codes: 51205-ROP/OBS DISCH DAY >30min SUNSHINE DENTON MD Oct 07, 2024 13:03
--- NOTE | 2024-10-07 13:44 | DVHPN2 ---
Progress Note Date Seen: Oct 07, 2024 Medical Necessity Reason Pt with a Central, PICC or Fol: No Subjective Patient reports: No new complaints Other Systems: Patient seen and examined by myself during hemodialysis today, blood pressure stable Objective vital signs Vital Sign Date Time Temp Pulse Resp B/P (MAP) Pulse Ox O2 Delivery O2 Flow Rate FiO2 10/07/24 12:47 98.5 80 14 119/74 (89) 96 98.5 10/07/24 08:00 Room Air* 0 21 Total Intake and Output 10/06/24 10/06/24 10/07/24 15:00 23:00 07:00 Intake Total 240 ml 800 ml Balance 240 ml 800 ml medications Current Medications Medications Dose Ordered Sig/Susie Route Start Time Stop Time Status Last Admin Dose Admin Hydralazine HCl 10 mg Q6HP PRN IV 10/04/24 12:00 10/06/24 23:58 10 MG Enoxaparin Sodium 30 mg DAILY SC 10/04/24 12:15 10/07/24 10:27 30 MG Lisinopril 40 mg DAILY PO 10/04/24 16:00 10/06/24 09:56 40 MG Acetaminophen/ Hydrocodone Bitart 1 tab Q4HP PRN PO 10/05/24 02:30 10/05/24 02:33 1 TAB Acetaminophen 650 mg Q6HP PRN PO 10/05/24 02:30 10/05/24 20:47 650 MG Ondansetron HCl 4 mg Q4HP PRN IV 10/05/24 02:30 10/07/24 01:23 4 MG Morphine Sulfate 2 mg Q4HPRN PRN IV 10/05/24 04:30 10/06/24 22:54 2 MG Metoprolol Tartrate 50 mg BID PO 10/05/24 10:00 10/07/24 10:26 50 MG Hydralazine HCl 50 mg Q6HR PO 10/06/24 20:30 10/07/24 06:14 50 MG Nifedipine 60 mg DAILY PO 10/07/24 10:00 10/07/24 10:25 60 MG Examination: LUNGS:Normal, CVS:Normal, MSK:Normal laboratory and microbiology Laboratory Tests 10/06/24 06:49 10/04/24 06:34 Test 10/06/24 06:49 Range/Units Serum Glucose 77 74-106 mg/dL Microbiology Date/Time Source Procedure Growth Status 10/03/24 21:51 Nose MRSA Screen - Final Complete Problem List/Assessment/Plan Problem List/Assessment/Plan End-stage renal disease [place] Hypertensive urgency Anemia of chronic of chronic kidney disease Recommendations Continue with UF to 3 L as tolerated Epogen 69497 IV post hemodialysis Blood pressure improved with hydralazine p.o. Renal diet We will continue to follow up Plan discussed with: Patient My Orders My Orders Orders - EDIE HERMAN MD Procedure Category Date Status Time Hemodialysis Orders ORDERS 10/08/24 Transmitted 07:00 Dialysis Nursing NGOC 10/08/24 In Process Message 07:00 Heparin Sodium PHA 10/08/24 In Process (Porcine) 07:00 Heparin Sodium PHA 10/08/24 In Process (Porcine) 07:00 Sodium Chloride 0.9% PHA 10/08/24 In Process 07:00 Document Fluid Input NGOC 10/08/24 In Process And Outpu 07:00 Epoetin Gurdeep-Epbx PHA 10/08/24 In Process (Retacrit) 21:00 EDIE HERMAN MD Oct 07, 2024 13:44
[2024-10-08] MEDS ORDERED: SODIUM CHL 0.9% 1000 ML BAG XX ONE (07:00)
[2024-10-08] MEDS ORDERED: EPOETIN ALFA-EPBX 10,000 UNIT/1ML VIAL SC ONE (21:00)
== END 2024-10-07 13:50 | disposition home or self-care (01) | DRG 640 ==
LOC: EDBD 05:24 → ER 05:24 → OVERFLOW 15:26 → ER 15:30 → WEST WING 17:58 → TELE-WESTW 10-07 02:18
PROVIDERS: ADMIT Student in an Organized Health Care Education/Training Program; ATTEND Family Medicine
PROC: 5A1D70Z Performance of Urinary Filtration, Intermittent, Less than 6 Hours Per Day (ICD-10-PCS; principal; 2024-10-04)
PROC: 5A1D70Z Performance of Urinary Filtration, Intermittent, Less than 6 Hours Per Day (ICD-10-PCS; 2024-10-06)
DX: E87.70 Fluid overload, unspecified (principal); J96.01 Acute respiratory failure with hypoxia; N18.6 End stage renal disease; I13.2 Hypertensive heart and chronic kidney disease with heart failure and with stage 5 chronic kidney disease, or end stage renal disease; I16.1 Hypertensive emergency; E44.1 Mild protein-calorie malnutrition; E87.5 Hyperkalemia; D63.1 Anemia in chronic kidney disease; E88.09 Other disorders of plasma-protein metabolism, not elsewhere classified; I50.9 Heart failure, unspecified; I95.9 Hypotension, unspecified; Z99.2 Dependence on renal dialysis; Z68.25 Body mass index [BMI] 25.0-25.9, adult; Z79.899 Other long term (current) drug therapy
CPT/HCPCS: 36415; 36600; 70450; 71045; 80048; 80053; 80074; 80307; 82728; 82805; 83540; 83550; 83880; 84100; 84484; 85014; 85018; 85025; 85610; 85730; 87081; 90935; 93005; G0378; J2405

== ENCOUNTER 2024-10-08 21:43 | Inpatient (IN) | payer OTHER, MEDICARE ==
[~2024-10-08] VITALS: Ht 162.6 cm; Wt 61.4 kg
[~2024-10-08 21:43] MED LIST: CALC667C PO; CLON0.2D6 PO; ERGO2000 PO; ESCI10TA PO; HYDR50TA47 PO; LISI20TA56 PO; METO1TAB9 PO; SEVE800T8 PO; SPIR25TA8 PO
--- NOTE | 2024-10-08 23:02 | ED.PDOC ---
History of Present Illness HPI Comments 43-year-old female who came to ER for abdominal pain. Patient does have history of hypertension, end-stage renal disease, currently on dialysis every Friday and Friday. Last dialysis session was yesterday. States for the past 2 days, she has been having epigastric abdominal pain with bouts of nausea and vomiting. States she could not keep anything in. Noted generalized weakness. Noted elevated blood pressure. Symptoms persistent prompting patient to come to the ER. Upon arrival blood pressure was 167/104 mm Hg, blood sugar of 71 Chief Complaint: Abdominal Pain Time Seen by MD: 23:02 Reviewed Notes: Nurses Notes Allergies: Coded Allergies: NO KNOWN ALLERGIES (Unverified , 10/03/24) Home Meds Active Scripts Hydralazine Hcl (Hydralazine Hcl) 50 Mg Tab, 1 TAB PO BID, #180 TAB 3 Refills Prov:SUNSHINE DENTON MD 10/07/24 Reported Medications Clonidine Hydrochloride (Clonidine Hcl) 0.2 Mg/24 Hr Dis, 0.2 MG PO DAILY for 30 Days, MG 10/05/24 Ergocalciferol (VITAMIN D2) 2,000 Unit Tab, 2000 UNIT PO QWEEKLY, TAB 10/05/24 Spironolactone (Spironolactone) 25 Mg Tab, 1 TAB PO DAILY, #90 TAB 1 Refill 10/05/24 Escitalopram Oxalate (Lexapro) 10 Mg Tab, 1 TAB PO HS, #90 TAB 3 Refills 10/05/24 Sevelamer Carbonate (Renvela) 800 Mg Tab, 2 TAB PO TID, #540 TAB 3 Refills 10/05/24 Calcium Acetate (Phosphate Bin (Calcium Acetate) 667 Mg Cap, 667 MG PO TIDWM for 30 Days, MG 10/05/24 Lisinopril (Lisinopril) 20 Mg Tab, 20 MG PO BID for 30 Days, MG 10/05/24 Metoprolol Succinate (Metoprolol Succinate Er) 100 Mg Tab, 100 MG PO DAILY, TAB 10/05/24 Information Source: Patient, Friend Mode of Arrival: Wheelchair Severity: Moderate Timing: Days Duration: Since onset Prehospital treatment: None Past Medical History PAST MEDICAL HISTORY: ESRD, HTN Past Medical History (Other): Dialysis every Friday Surgical History: Denies all surgeries ACCOUNTS PAYABLE PROCESSOR History: Denies all ACCOUNTS PAYABLE PROCESSOR Hx Family History Family History: Reviewed,noncontributory to illness Social History Smoker: Non-Smoker Alcohol: Denies ETOH Use Drugs: Denies Drug Use Lives In: Home Constitutional: reports: fatigue, malaise, weakness; denies: chills, diaphoresis, fever, sweats, others EENTM: denies: blurred vision, double vision, ear bleeding, ear discharge, ear drainage, ear pain, ear ringing, eye pain, eye redness, hearing loss, mouth pain, mouth swelling, nasal discharge, nose bleeding, nose congestion, nose pain, photophobia, tearing, throat pain, throat swelling, voice changes, others Respiratory: denies: cough, hemoptysis, orthopnea, SOB at rest, shortness of breath, SOB with excertion, stridor, wheezing, others Cardiovascular: denies: chest pain, dizzy spells, diaphoresis, Dyspnea on exertion, edema, irregular heart beat, left arm pain, lightheadedness, palpitations, PND, syncope, others Gastrointestinal: reports: abdominal pain, nausea, poor appetite, vomiting; denies: abdomen distended, blood streaked bowels, constipated, diarrhea, dysphagia, difficulty swallowing, hematemesis, melena, poor fluid intake, rectal bleeding, rectal pain, others Genitourinary: denies: abnormal vagina bleeding, burning, dyspareunia, dysuria, flank pain, frequency, hematuria, incontinence, pain, , vagina discharge, urgency, others Neurological: denies: dizziness, fainting, headache, left sided numbness, left sided weakness, numbness, paresthesia, pre-existing deficit, right sided numbness, right sided weakness, seizure, speech problems, tingling, tremors, weakness, others Musculoskeletal: denies: back pain, gout, joint pain, joint swelling, muscle pain, muscle stiffness, neck pain, others Integumetry: denies: bruises, change in color, change in hair/nails, dryness, laceration, lesions, lumps, rash, wounds, others Allergic/Immunocompromised: denies: Difficulty Healing, Frequent Infections, Hives, Itching, others Hematologic/Lymphatic: denies: anemia, blood clots, easy bleeding, easy bruising, swollen glands, others Endocrine: denies: excessive hunger, excessive sweating, excessive thirst, excessive urination, flushing, intolerance to cold, intolerance to heat, unexplained weight gain, unexplained weight loss, others Psychiatric: denies: anxiety, bipolar disorder, depression, hopeless, panic dis order, schizophrenia, sleepless, suicidal, others Physical Exam General Appearance: Moderate Distress (Patient appears to be in moderate distress at time of evaluation. Patient looks to be in poor overall health.), Normal HEENT: Normal ENT Inspection, Pharynx Normal, TMs Normal Neck: Full Range of Motion, Non-Tender, Normal, Normal Inspection Respiratory: Chest Non-Tender, Lungs Clear, No Accessory Muscle Use, No Respiratory Distress, Normal Breath Sounds Cardiovascular: No Edema, No JVD, No Murmur, No Gallop, Normal Peripheral Pulses, Regular Rate/Rhythm Breast Exam: Deferred Gastrointestinal: No Pulsatile Mass, Normal Bowel Sounds, Soft, Other (Diffuse tenderness to palpation throughout the bilateral lateral aspect of the stomach extending towards the left and right flank. No signs of trauma. No pulsatile masses.) Genitalia: Deferred Pelvic: Deferred Rectal: Deferred Extremities: No calf tenderness, Normal capillary refill, Normal inspection, Normal range of motion, Non-tender, No pedal edema Musculoskeletal : Apperance: Normal Neurologic: Alert, No Motor Deficits, No Sensory Deficits Cerebellar Function: Normal Reflexes: Normal Skin: Dry, Normal Color, Warm Lymphatic: No Adenopathy Was a procedure done? Was a procedure done?: No Differential Dx Considerations may include: Anemia, electrolyte imbalance, gastritis, dehydration, end-stage renal disease X-Ray, Labs, Meds, VS Vital Signs Date Time Temp Pulse Resp B/P (MAP) Pulse Ox O2 Delivery O2 Flow Rate FiO2 10/08/24 23:52 68 18 10/08/24 23:52 127/112 10/08/24 23:52 68 18 177/112 (133) 10/08/24 22:27 97.5 65 16 167/104 (125) 100 Lab Test 10/08/24 23:24 10/08/24 22:33 Range/Units White Blood Count 3.7 L 4.4-10.8 10^3/uL Red Blood Count 3.95 L 4.0-5.20 10^6/uL Hemoglobin 11.3 #L 12.2-16.2 g/dL Hematocrit 34.9 #L 36.0-46.0 % Mean Corpuscular Volume 88.5 80.0-100.0 fL Mean Corpuscular Hemoglobin 28.6 28.0-32.0 pg Mean Corpuscular Hemoglobin Concent 32.3 32.0-36.0 g/dL Red Cell Distribution Width 18.8 H 11.8-14.3 % Platelet Count 246 140-450 10^3/uL Mean Platelet Volume 7.7 6.9-10.8 fL Neutrophils (%) (Auto) 72.8 37.0-80.0 % Lymphocytes (%) (Auto) 15.1 10.0-50.0 % Monocytes (%) (Auto) 8.5 0.0-12.0 % Eosinophils (%) (Auto) 2.8 0.0-7.0 % Basophils (%) (Auto) 0.8 0.0-2.0 % Neutrophils # (Auto) 2.7 1.6-8.6 10 ^3/uL Lymphocytes # (Auto) 0.6 0.4-5.4 10 ^3/uL Monocytes # (Auto) 0.3 0-1.3 10 ^3/uL Eosinophils # (Auto) 0.1 0-0.8 10 ^3/uL Basophils # (Auto) 0 0-0.2 10 ^3/uL Nucleated Red Blood Cells 0.1 % Sodium Level 136 136-145 mmol/L Potassium Level 5.0 3.5-5.1 mmol/L Chloride Level 97 L 98-107 mmol/L Carbon Dioxide Level 28 20-31 mmol/L Anion Gap 11 5-15 Blood Urea Nitrogen 34 H 9-23 mg/dL Creatinine 10.86 *H 0.550-1.02 mg/dL Glomerular Filtration Rate Calc 4 >90 mL/min BUN/Creatinine Ratio 3.1 L 10.0-20.0 Serum Glucose 80 74-106 mg/dL Calcium Level 10.5 H 8.7-10.4 mg/dL Total Bilirubin 0.2 0.2-1.0 mg/dL Aspartate Amino Transferase (AST) 20 13-40 U/L Alanine Aminotransferase (ALT) 9 7-40 U/L Alkaline Phosphatase 91 46-116 U/L Total Protein 8.6 H 5.7-8.2 g/dL Albumin 3.8 3.2-4.8 g/dL Lipase 31 12-53 U/L POC Glucose 71 70-106 mg/dl Current Medications Medications (Trade) Dose Ordered Sig/Susie Route Start Time Stop Time Status Last Admin Ondansetron HCl (Zofran) 4 mg ONCE ONCE IM 10/08/24 22:15 10/08/24 22:16 DC 10/08/24 23:51 Clonidine HCl (Catapres Tablet) 0.2 mg ONCE ONCE PO 10/08/24 23:00 10/08/24 23:01 DC 10/08/24 23:52 X-Ray, Labs, Meds, VS Comment C4 the ED today were evaluated by me personally. Urine was pending at time of this note. Patient's laboratories revealed a anemic state as well as a critical renal disease state with a creatinine of 10.76. This is a, patient displayed a hypertonicity urgency concern liver required medication intervention. Patient will be admitted for physiologic concerns including nausea and vomiting and will require dialysis tomorrow as well as a nephrology consult. Additionally, patient will require a cardiac consult to address her hypertensive concerns. Time of 1ST Reevaluation: 01:54 Reevaluation 1ST: Improved Consultation: PCP, Cardiology, Other (Nephrology) Patient Education/Counseling: Diagnosis, Treatment Family Education/Counseling: Diagnosis, Treatment Departure 1 Departure Time of Disposition: 01:56 Impression: Primary Impression: End stage renal disease on dialysis Additional Impressions: Elevated serum creatinine Anemia Hypertensive urgency Disposition: 09 ADMITTED INPATIENT Condition: Fair Discharged With: Self, Spouse Critical Care Note Critical Care Time?: No Stability Stability form required: No Heart Score Heart Score: Heart Score Response (Comments) Value History N/A 0 EKG N/A 0 Age N/A 0 Risk Factors N/A 0 Troponin N/A 0 Total 0 I personally scribed for JOO VICENTE PAC ([email or web address]) on 10/08/24 at 23:02. Electronically submitted by Adolfo Merida ([email or web address]). JOO VICENTE PAC Oct 08, 2024 23:02
[2024-10-08 23:41] LABS: Basophils # (auto) 0 10 ^3/uL (0-0.2); Basophils % (auto) 0.8 % (0.0-2.0); Eosinophils # (auto) 0.1 10 ^3/uL (0-0.8); Eosinophils % (auto) 2.8 % (0.0-7.0); Hematocrit 34.9 % (36.0-46.0); Hemoglobin 11.3 g/dL (12.2-16.2); Lymphocytes # (auto) 0.6 10 ^3/uL (0.4-5.4); Lymphocytes % (auto) 15.1 % (10.0-50.0); Mean Corpuscular Hemoglobin 28.6 pg (28.0-32.0); Mean Corpuscular Hgb Conc. 32.3 g/dL (32.0-36.0); Mean Corpuscular Volume 88.5 fL (80.0-100.0); Monocytes # (auto) 0.3 10 ^3/uL (0-1.3); Monocytes % (auto) 8.5 % (0.0-12.0); Neutrophils # (auto) 2.7 10 ^3/uL (1.6-8.6); Neutrophils % (auto) 72.8 % (37.0-80.0); Nucleated Red Blood Cells % 0.1 %; Platelet Count (auto) 246 10^3/uL (140-450); Red Blood Cells 3.95 10^6/uL (4.0-5.20); Red Cell Distribution Width 18.8 % (11.8-14.3); White Blood Cell 3.7 10^3/uL (4.4-10.8)
[2024-10-08] MEDS: ONDANSETRON HCL 4 MG/2 ML VIAL IM ONE (23:51)
[2024-10-08] MEDS: cloNIDine HCL 0.1 MG TAB PO ONE (23:52)
[2024-10-08 23:58] LABS: Albumin 3.8 g/dL (3.2-4.8); Alkaline Phosphatase 91 U/L (46-116); Anion Gap 11 (5-15); Aspartate Aminotransferase 20 U/L (13-40); BUN/Creatinine Ratio 3.1 (10.0-20.0); Carbon Dioxide 28 mmol/L (20-31); Glucose 80 mg/dL (74-106); Lipase 31 U/L (12-53)
[2024-10-08 23:59] LABS: Blood Urea Nitrogen 34 mg/dL (9-23); Chloride 97 mmol/L (98-107); Sodium 136 mmol/L (136-145)
[2024-10-09] VITALS (7 sets, daily range): BP systolic 132–185; BP diastolic 72–105; PULSE 67–185; RESP 16–22; TEMP 97.5–98.6; O2SAT 95–100
[2024-10-09 00:01] LABS: Alanine Aminotransferase 9 U/L (7-40); Bilirubin, Total 0.2 mg/dL (0.2-1.0); Calcium 10.5 mg/dL (8.7-10.4); Total Protein 8.6 g/dL (5.7-8.2)
[2024-10-09] MEDS: HYDROmorphone HCL 2 MG/ML VL/or syr IV ONE (02:15)
[2024-10-09] MEDS ORDERED: HYDROcodone-ACET 5/325MG TAB PO PRN (04:00)
[2024-10-09] MEDS ORDERED: MORPHINE SULFATE INJ 2 MG/ml SYRG IV PRN ×2 (04:00→05:15)
[2024-10-09] MEDS ORDERED: DOCUSATE SOD 100 MG CAP PO PRN (04:00)
[2024-10-09] MEDS: SODIUM CHLORIDE 0.9% 1,000 ML IV SCH (04:00)
[2024-10-09] MEDS ORDERED: ACETAMINOPHEN 325 MG TAB PO PRN (04:00)
[2024-10-09] MEDS ORDERED: NITROGLYCERIN 0.4 MG SL TAB SL PRN (05:15)
--- NOTE | 2024-10-09 05:42 | DVHHP2 ---
History of Present Illness Reason for Visit: Acute abdominal pain History of Present Illness The patient is a 43-year-old female with past medical history of hypertension and end-stage renal disease on hemodialysis Tuesdays, , Friday who presented to [facility] ED with complaint of acute abdominal pain. Patient reports symptoms progressively get worse with nausea, vomiting, loss of appetite, malaise, fatigue, and generalized weakness. Patient is from [place] traveling to visit family. Patient was recently seen here on October 03, 2024 and was supposed to fly out back home but developed shortness of breath unstable to fly out. Patient was evaluated in the ED, laboratory data shows WBC 3.7 platelets 246, sodium 136, potassium 5.0, BUN 34 creatinine 10.86, GFR 4, glucose 80, calcium 10.5, lipase 31, blood pressure 156/104, heart rate 68, temperature 97.9 F, O2 saturation 99% room air. Patient was scheduled for hemodialysis today, please see medication section in the computer. On my assessment, at bedside, patient denies chest pain, no headache, no dizziness, no diaphoresis, no shortness of breath, no diarrhea, no nausea or vomiting at this moment, no fever, no chills. Patient was admitted further evaluation and medical management. Past Medical History ESRD, HTN Past Surgical History Dialysis access Family History Reviewed, noncontributory to the management of this case. Past Social History The patient lives at home, denies smoking, alcohol or illicit drugs abuse. Review of Systems Constitutional: Yes: Weakness, Malaise, Other (Fatigue); No: Fever, Chills, Sweats Eyes: No: Pain, Vision change, Conjunctivae inflammation, Eyelid inflammation, Other, Redness ENT: No: Ear pain, Ear discharge, Nose pain, Nose discharge, Nose congestion, Mouth pain, Mouth swelling, Throat pain, Throat swelling, Other Respiratory: No: Cough, Dry, Shortness of breath, SOB with excertion, Wheezing, Hemoptysis, Pleuritic Pain, Sputum, Wheezing, Other Cardiovascular: No: Chest Pain, Palpitations, Orthopnea, Paroxysmal Noc. Dyspnea, Edema, Lt Headedness, Other Gastrointestinal: Nausea, Vomiting, Abdominal Pain, Other (Poor appetite); No: Diarrhea, Constipation, Melena, Hematochezia Genitourinary: No Dysuria, No Frequency, No Incontinence, No Hematuria, No Retention, No Other Musculoskeletal: No: other, neck pain, shoulder pain, arm pain, back pain, hand pain, leg pain, foot pain Skin: No: Rash, Lesions, Jaundice, Bruising, Other Neurological: No: Weakness, Numbness, Incoordination, Change in speech, Confusion, Seizures, Other Allergies: Coded Allergies: NO KNOWN ALLERGIES (Unverified , 10/03/24) Medications Current Medications Medications Dose Ordered Sig/Susie Route Start Time Stop Time Status Last Admin Dose Admin Hydralazine HCl 10 mg Q6HP PRN IV 10/09/24 04:00 Sevelamer HCl 800 mg TIDWM PO 10/09/24 08:00 Multivit/Ca Carb/ B Cmplx/FA/Prenat 1 tab DAILY PO 10/09/24 10:00 Sodium Chloride 1,000 ml @ 60 mls/hr [id number] IV 10/09/24 04:00 Acetaminophen/ Hydrocodone Bitart 1 tab Q4HP PRN PO 10/09/24 04:00 Ondansetron HCl 4 mg Q4HP PRN IV 10/09/24 04:00 Docusate Sodium 100 mg BIDPRN PRN PO 10/09/24 04:00 Acetaminophen 650 mg Q6HP PRN PO 10/09/24 04:00 Morphine Sulfate 2 mg Q4HPRN PRN IV 10/09/24 04:00 UNV Exam Vital Signs Vital Signs Date Time Temp Pulse Resp B/P (MAP) Pulse Ox O2 Delivery O2 Flow Rate FiO2 10/09/24 03:46 97.9 60 12 117/80 (92) 99 97.9 General Appearance: Alert, Oriented X3, Cooperative, No acute distress HEENT: Atraumatic, PERRLA, EOMI, Mucous membr. moist/pink Respiratory: Clear to auscultation, Normal air movement Cardiovascular: Regular rate, Normal S1, Normal S2, No murmurs Abdominal: Normal bowel sounds, Soft, No hepatospenomegaly, No masses, Other (Reports tenderness) Extremities: No clubbing, No cyanosis, No edema, Normal pulses, No tenderness/swelling Skin: No rashes, No breakdown, No significant lesion Neuro: Normal speech, Normal tone, Sensation intact, Cranial nerves 3-12 NL, Reflexes 2+, Other (Generalized weakness) Psych/Mental Status: Mental status NL, Mood NL Labs/Xrays Labs Test 10/08/24 23:24 10/08/24 22:33 Range/Units White Blood Count 3.7 L 4.4-10.8 10^3/uL Red Blood Count 3.95 L 4.0-5.20 10^6/uL Hemoglobin 11.3 #L 12.2-16.2 g/dL Hematocrit 34.9 #L 36.0-46.0 % Mean Corpuscular Volume 88.5 80.0-100.0 fL Mean Corpuscular Hemoglobin 28.6 28.0-32.0 pg Mean Corpuscular Hemoglobin Concent 32.3 32.0-36.0 g/dL Red Cell Distribution Width 18.8 H 11.8-14.3 % Platelet Count 246 140-450 10^3/uL Mean Platelet Volume 7.7 6.9-10.8 fL Neutrophils (%) (Auto) 72.8 37.0-80.0 % Lymphocytes (%) (Auto) 15.1 10.0-50.0 % Monocytes (%) (Auto) 8.5 0.0-12.0 % Eosinophils (%) (Auto) 2.8 0.0-7.0 % Basophils (%) (Auto) 0.8 0.0-2.0 % Neutrophils # (Auto) 2.7 1.6-8.6 10 ^3/uL Lymphocytes # (Auto) 0.6 0.4-5.4 10 ^3/uL Monocytes # (Auto) 0.3 0-1.3 10 ^3/uL Eosinophils # (Auto) 0.1 0-0.8 10 ^3/uL Basophils # (Auto) 0 0-0.2 10 ^3/uL Nucleated Red Blood Cells 0.1 % Sodium Level 136 136-145 mmol/L Potassium Level 5.0 3.5-5.1 mmol/L Chloride Level 97 L 98-107 mmol/L Carbon Dioxide Level 28 20-31 mmol/L Anion Gap 11 5-15 Blood Urea Nitrogen 34 H 9-23 mg/dL Creatinine 10.86 *H 0.550-1.02 mg/dL Glomerular Filtration Rate Calc 4 >90 mL/min BUN/Creatinine Ratio 3.1 L 10.0-20.0 Serum Glucose 80 74-106 mg/dL Calcium Level 10.5 H 8.7-10.4 mg/dL Total Bilirubin 0.2 0.2-1.0 mg/dL Aspartate Amino Transferase (AST) 20 13-40 U/L Alanine Aminotransferase (ALT) 9 7-40 U/L Alkaline Phosphatase 91 46-116 U/L Total Protein 8.6 H 5.7-8.2 g/dL Albumin 3.8 3.2-4.8 g/dL Lipase 31 12-53 U/L POC Glucose 71 70-106 mg/dl Assessment/Plan Assessment/Plan Acute abdominal pain End stage renal disease on dialysis Elevated serum creatinine Hypertensive urgency Generalized weakness Intractable nausea and vomiting Plan 1. Admit to telemetry unit 2. Breathing treatment 3. Pain control management 4. Management of fluids and electrolytes 5. Consultation for Nephrology 6. Diagnostic tests CT abdomen/pelvis 7. DVT prophylaxis-on heparin 8. Repeat labs CBC, CMP in a.m. 9. Continue with current medical management 10. Treatment plan discussed with patient/ and RN. Patient/ verbalized understanding. Plan discussed with: Patient, Spouse ( at bedside), Other (RN) My Orders Orders - PHILIP ROMERO DNP Procedure Category Date Status Time Complete Blood Count LAB 10/09/24 Logged 04:00 Comprehensive LAB 10/09/24 Logged Metabolic Panel 04:00 Hydralazine Injection PHA 10/09/24 In Process (Apresoline Inject 04:00 *[facility] CONS 10/09/24 Transmitted -[place] 03:54 Sevelamer (Renagel) PHA 10/09/24 In Process 08:00 B-Complex W/ C & PHA 10/09/24 In Process Folic Tablet 10:00 Allergies NGOC 10/09/24 In Process 03:54 Code Status CODE 10/09/24 Transmitted 03:54 Sodium Chloride 0.9% PHA 10/09/24 In Process 04:00 Oxygen Per Hour RT 10/09/24 Transmitted 03:54 Hydrocodone-Acet PHA 10/09/24 In Process 5/325mg Tab ([place] 04:00 Ondansetron Hcl PHA 10/09/24 In Process (Zofran) 04:00 Docusate Sodium PHA 10/09/24 In Process Capsule (Colace 04:00 Complete Blood Count LAB 10/10/24 Verified 04:00 Comprehensive LAB 10/10/24 Verified Metabolic Panel 04:00 Condition: Serious NGOC 10/09/24 In Process 03:54 Acetaminophen Tablet [facility] 10/09/24 In Process (Tylenol Tablet) 04:00 Clear Liq Diet DIET 10/09/24 Transmitted Breakfast Bedrest With Bathroom [facility] 10/09/24 In Process Privileg 03:54 Morphine Sulfate [facility] 10/09/24 Pending Injection 04:00 Sequential [facility] 10/09/24 In Process Compression Device Hydromorphone [facility] 10/09/24 Verified Injection (Dilaudid 05:15 Admit ADMIT 10/09/24 Verified 05:13 Nitroglycerin [facility] 10/09/24 Verified Sublingual (Ntrostat 05:15 Morphine Sulfate [facility] 10/09/24 Verified Injection 05:15 Notify Of Changes [facility] 10/09/24 Verified From Base 05:13 Email Manager For [facility] 10/09/24 Verified 24 Hours 05:13 Emergency Dysrhythmia [facility] 10/09/24 Verified Protocol 05:13 Rhythm Strips Once [facility] 10/09/24 Verified Every Shift 05:13 Oxygen By Nasal 10/09/24 Verified Cannula 05:13 Problem List: (1) Acute abdominal pain (2) End stage renal disease on dialysis (3) Elevated serum creatinine (4) Hypertensive urgency (5) Generalized weakness (6) Intractable nausea and vomiting Date of Service: Oct 09, 2024 Billing Provider: PHILIP ROMERO DNP Common Visit Codes: [id number] INP/OBS CARE (HIGH) PHILIP ROMERO DNP Oct 09, 2024 05:42
--- NOTE | 2024-10-09 06:25 | DVH ---
Exam: CT CT AB PEL WO CON-NO ORAL OR IV History: Acute abdominal pain Comparison Study: None available at time of dictation. TECHNIQUE: Multidetector CT of the abdomen was performed from lung bases to pubic symphysis. Imaging was performed without IV contrast. Axial, coronal and sagittal multiplanar reformats were obtained fr om the axial data set by the technologist. Radiation Dose : 1. Abdomen/Pelvis: CTDIvol 5.3 mGy, DLP 302.9 mGy*cm. FINDINGS: Evaluation of solid organs is limited due to lack of intravenous contrast use. Findings: Lung Bases: Cardiomegaly. Trace pericardial effusion. Liver: The liver is normal in size. No focal lesions. Gallbladder and Biliary Tree: Gallbladder distention with possible gallbladder sludge. Spleen: Unremarkable Pancreas: The pancreas is grossly normal in appearance. Adrenal Glands: Unremarkable Kidneys: Transplant kidney is visualized in the right iliac fossa with adjacent perinephric stranding . No hydronephrosis. Right [place] kidney is surgically absent. Severe atrophy of the left kidney. Bladder: Underdistended. Bowel: The stomach is grossly normal in appearance. Small bowel and colon are normal in caliber and d istribution. The appendix is not visualized; however, no secondary findings of acute appendicitis id entified. Ascites: Absent Lymphadenopathy: No mesenteric, retroperitoneal or periportal lymphadenopathy. Abdominal Wall and Mesentery: Unremarkable. Vasculature: The visualized abdominal aorta is normal in size and caliber. Evaluation of abdominal a nd pelvic vessels is limited due to lack of intravenous contrast. Pelvic Organs: There is a right ovarian cyst measuring 3.5 cm. Musculoskeletal: No aggressive focal bony lesions, acute fractures or dislocation. Soft tissues: Soft tissue stranding in the left anterior abdomen may be related to prior injection. IMPRESSION: Transplant kidney in the right iliac fossa with perinephric stranding. No hydronephrosis. Findings m ay reflect pyelonephritis. Gallbladder sludge with mild gallbladder distention. Radiation optimization: All CT scans at this facility use at least one of these dose optimization marquise hniques: automated exposure control mA and/or kV adjustment per patient size (includes targeted exam s where dose is matched to clinical indication) or iterative reconstruction.
[2024-10-09 07:35] LABS: Alkaline Phosphatase 83 U/L (46-116); Anion Gap 11 (5-15); BUN/Creatinine Ratio 3.3 (10.0-20.0); Calcium 10.2 mg/dL (8.7-10.4); Carbon Dioxide 29 mmol/L (20-31); Potassium 4.4 mmol/L (3.5-5.1); Sodium 136 mmol/L (136-145)
[2024-10-09 07:36] LABS: Albumin 3.2 g/dL (3.2-4.8); Basophils # (auto) 0 10 ^3/uL (0-0.2); Basophils % (auto) 0.9 % (0.0-2.0); Eosinophils # (auto) 0.1 10 ^3/uL (0-0.8); Eosinophils % (auto) 4.3 % (0.0-7.0); Hematocrit 32.8 % (36.0-46.0); Hemoglobin 10.6 g/dL (12.2-16.2); Lymphocytes # (auto) 0.8 10 ^3/uL (0.4-5.4); Lymphocytes % (auto) 25.2 % (10.0-50.0); Mean Corpuscular Hemoglobin 28.7 pg (28.0-32.0); Mean Corpuscular Hgb Conc. 32.3 g/dL (32.0-36.0); Monocytes # (auto) 0.4 10 ^3/uL (0-1.3); Monocytes % (auto) 13.2 % (0.0-12.0); Neutrophils # (auto) 1.9 10 ^3/uL (1.6-8.6); Neutrophils % (auto) 56.4 % (37.0-80.0); Nucleated Red Blood Cells % 0.3 %; Platelet Count (auto) 238 10^3/uL (140-450); Red Blood Cells 3.69 10^6/uL (4.0-5.20); Red Cell Distribution Width 18.5 % (11.8-14.3); Total Protein 7.6 g/dL (5.7-8.2); White Blood Cell 3.4 10^3/uL (4.4-10.8)
[2024-10-09 09:15] LABS: Glucose 70 mg/dL (74-106)
[2024-10-09 09:43] LABS: Alanine Aminotransferase < 9 U/L (7-40); Aspartate Aminotransferase 10 U/L (13-40); Bilirubin, Total 0.2 mg/dL (0.2-1.0); Blood Urea Nitrogen 38 mg/dL (9-23); Chloride 96 mmol/L (98-107)
[2024-10-09] MEDS: SEVELAMER 800 MG TAB PO SCH (10:49)
[2024-10-09] MEDS: FAMOTIDINE (10MG/ML) 2ML VL IV SCH (10:50)
[2024-10-09] MEDS: B-COMPLEX W/ C & FOLIC ACID(NEPHROVITE TAB) PO SCH (10:50)
[2024-10-09] MEDS: hydrALAZINE HCL 25 MG TAB PO SCH (10:53)
[2024-10-09] MEDS: amLODIPine BESYLATE 5 MG TAB PO SCH (10:54)
[2024-10-09] MEDS: ONDANSETRON HCL 4 MG/2 ML VIAL IV PRN (12:50)
[2024-10-09] MEDS: HYDROmorphone HCL 2 MG/ML VL/or syr IV PRN (12:51)
[2024-10-09] MEDS: hydrALAZINE HCL 20 MG/ML VL IV PRN (12:52)
[2024-10-09] MEDS: CARVEDILOL 3.125 MG TAB PO SCH (21:59)
[2024-10-10] VITALS (7 sets, daily range): BP systolic 107–181; BP diastolic 71–113; PULSE 66–79; RESP 16–18; TEMP 97.4–98.6; O2SAT 96–97
[2024-10-10 05:37] LABS: Rapid Influenza A Negative (Negative); Rapid Influenza B Negative (Negative)
[2024-10-10 05:38] LABS: COVID19 ANTIGEN SOFIA FIA NEGATIVE (NEGATIVE)
[2024-10-10 06:51] LABS: Alkaline Phosphatase 75 U/L (46-116); Anion Gap 10 (5-15); BUN/Creatinine Ratio 3.3 (10.0-20.0); Calcium 9.8 mg/dL (8.7-10.4); Carbon Dioxide 29 mmol/L (20-31); Glucose 84 mg/dL (74-106); Potassium 4.7 mmol/L (3.5-5.1)
[2024-10-10 06:52] LABS: Total Protein 6.8 g/dL (5.7-8.2)
[2024-10-10 06:56] LABS: Basophils # (auto) 0 10 ^3/uL (0-0.2); Basophils % (auto) 0.7 % (0.0-2.0); Eosinophils # (auto) 0.2 10 ^3/uL (0-0.8); Eosinophils % (auto) 5.4 % (0.0-7.0); Hematocrit 29.7 % (36.0-46.0); Hemoglobin 9.8 g/dL (12.2-16.2); Lymphocytes # (auto) 1.2 10 ^3/uL (0.4-5.4); Lymphocytes % (auto) 28.3 % (10.0-50.0); Mean Corpuscular Hemoglobin 28.8 pg (28.0-32.0); Mean Corpuscular Hgb Conc. 32.8 g/dL (32.0-36.0); Mean Corpuscular Volume 87.9 fL (80.0-100.0); Monocytes # (auto) 0.7 10 ^3/uL (0-1.3); Monocytes % (auto) 16.7 % (0.0-12.0); Neutrophils % (auto) 48.9 % (37.0-80.0); Nucleated Red Blood Cells % 0.1 %; Platelet Count (auto) 207 10^3/uL (140-450); Red Blood Cells 3.39 10^6/uL (4.0-5.20); Red Cell Distribution Width 18.6 % (11.8-14.3); White Blood Cell 4.1 10^3/uL (4.4-10.8)
[2024-10-10 07:00] LABS: Alanine Aminotransferase < 9 U/L (7-40); Albumin 2.9 g/dL (3.2-4.8); Aspartate Aminotransferase 9 U/L (13-40); Bilirubin, Total < 0.2 mg/dL (0.2-1.0); Blood Urea Nitrogen 45 mg/dL (9-23); Chloride 96 mmol/L (98-107); Sodium 135 mmol/L (136-145)
[2024-10-10] MEDS: amLODIPine BESYLATE 5 MG TAB PO SCH (10:02)
[2024-10-10] MEDS ORDERED: SODIUM CHL 0.9% 1000 ML BAG XX ONE (12:30)
[2024-10-10] MEDS: PIPERACILLIN-TAZOB 3.375GM 50 ML IV ONE (14:06)
--- NOTE | 2024-10-10 17:27 | DVHINCON2 ---
Date of service: Oct 10, 2024 Referring Physician Otoniel Corral NP Reason for Consultation ESRD History of Present Illness Mrs. Lazaro Gan is a 43-year-old female with history of ESRD on maintenance hemodialysis who lives out of the area. She presented for further evaluation and management of abdominal pain. She was seen in her room yesterday and again this after this afternoon. Family was present both times. She states that her abdominal discomfort and nausea have improved slightly. Her blood pressure control also has improved. There are plans for her to go to [place] next week she has established medical care including dialysis there. Past Medical History ESRD Hypertension Anemia Past Surgical History prior history of kidney transplantation Allergies: Coded Allergies: NO KNOWN ALLERGIES (Unverified , 10/03/24) Home Meds Active Scripts Hydralazine Hcl (Hydralazine Hcl) 50 Mg Tab, 1 TAB PO BID, #180 TAB 3 Refills Prov:SUNSHINE DENTON MD 10/07/24 Reported Medications Clonidine Hydrochloride (Clonidine Hcl) 0.2 Mg/24 Hr Dis, 0.2 MG PO DAILY for 30 Days, MG 10/05/24 Ergocalciferol (VITAMIN D2) 2,000 Unit Tab, 2000 UNIT PO QWEEKLY, TAB 10/05/24 Spironolactone (Spironolactone) 25 Mg Tab, 1 TAB PO DAILY, #90 TAB 1 Refill 10/05/24 Escitalopram Oxalate (Lexapro) 10 Mg Tab, 1 TAB PO HS, #90 TAB 3 Refills 10/05/24 Sevelamer Carbonate (Renvela) 800 Mg Tab, 2 TAB PO TID, #540 TAB 3 Refills 10/05/24 Calcium Acetate (Phosphate Bin (Calcium Acetate) 667 Mg Cap, 667 MG PO TIDWM for 30 Days, MG 10/05/24 Lisinopril (Lisinopril) 20 Mg Tab, 20 MG PO BID for 30 Days, MG 10/05/24 Metoprolol Succinate (Metoprolol Succinate Er) 100 Mg Tab, 100 MG PO DAILY, TAB 10/05/24 Current Medications Current Medications Medications (Trade) Dose Ordered Sig/Susie Route PRN Reason Start Time Stop Time Status Last Admin Amlodipine Besylate (Norvasc Tablet) 10 mg DAILY PO 10/10/24 10:00 10/10/24 10:02 Carvedilol (Coreg Tablet) 6.25 mg Q12HR PO 10/09/24 22:00 10/10/24 10:03 Piperacillin Sod/ Tazobactam Sod 50 ml @ 12.5 mls/hr Q12HR IV 10/10/24 22:00 Family History: Diabetes mellitus G8 FATHER Review of Systems denies chest pain, shortness of breath, fever. H&P Exam Vital Signs/I&O Vital Sign Date Time Temp Pulse Resp B/P (MAP) Pulse Ox O2 Delivery O2 Flow Rate FiO2 10/10/24 13:00 98.1 66 17 107/71 (83) 97 98.1 10/10/24 08:00 Room Air* 0 21 Intake and Output 10/09/24 10/10/24 19:00 07:00 Intake Total 240 ml 640 ml Balance 240 ml 640 ml Intake Oral 240 ml 640 ml # Voids 1 1 Physical Exam gen: nad heent: nc lungs: cta cvs: no rub abd: soft exT: no edema skin: no rash neuro: awake and alert Labs/Diagnostic Data Labs/Diagnostic Data Laboratory Tests Test 10/10/24 05:45 10/10/24 04:00 10/09/24 06:45 10/08/24 23:24 Range/Units White Blood Count 4.1 L 3.4 L 3.7 L 4.4-10.8 10^3/uL Red Blood Count 3.39 L 3.69 L 3.95 L 4.0-5.20 10^6/uL Hemoglobin 9.8 L 10.6 L 11.3 #L 12.2-16.2 g/dL Hematocrit 29.7 L 32.8 L 34.9 #L 36.0-46.0 % Mean Corpuscular Volume 87.9 89.0 88.5 80.0-100.0 fL Mean Corpuscular Hemoglobin 28.8 28.7 28.6 28.0-32.0 pg Mean Corpuscular Hemoglobin Concent 32.8 32.3 32.3 32.0-36.0 g/dL Red Cell Distribution Width 18.6 H 18.5 H 18.8 H 11.8-14.3 % Platelet Count 207 238 246 140-450 10^3/uL Mean Platelet Volume 7.6 7.5 7.7 6.9-10.8 fL Neutrophils (%) (Auto) 48.9 56.4 72.8 37.0-80.0 % Lymphocytes (%) (Auto) 28.3 25.2 15.1 10.0-50.0 % Monocytes (%) (Auto) 16.7 H 13.2 H 8.5 0.0-12.0 % Eosinophils (%) (Auto) 5.4 4.3 2.8 0.0-7.0 % Basophils (%) (Auto) 0.7 0.9 0.8 0.0-2.0 % Neutrophils # (Auto) 2.0 1.9 2.7 1.6-8.6 10 ^3/uL Lymphocytes # (Auto) 1.2 0.8 0.6 0.4-5.4 10 ^3/uL Monocytes # (Auto) 0.7 0.4 0.3 0-1.3 10 ^3/uL Eosinophils # (Auto) 0.2 0.1 0.1 0-0.8 10 ^3/uL Basophils # (Auto) 0 0 0 0-0.2 10 ^3/uL Nucleated Red Blood Cells 0.1 0.3 0.1 % Sodium Level 135 L 136 136 136-145 mmol/L Potassium Level 4.7 4.4 5.0 3.5-5.1 mmol/L Chloride Level 96 L 96 L 97 L 98-107 mmol/L Carbon Dioxide Level 29 29 28 20-31 mmol/L Anion Gap 10 11 11 5-15 Blood Urea Nitrogen 45 H 38 H 34 H 9-23 mg/dL Creatinine 13.63 *H 11.62 *H 10.86 *H 0.550-1.02 mg/dL Glomerular Filtration Rate Calc 3 4 4 >90 mL/min BUN/Creatinine Ratio 3.3 L 3.3 L 3.1 L 10.0-20.0 Serum Glucose 84 70 L 80 74-106 mg/dL Calcium Level 9.8 10.2 10.5 H 8.7-10.4 mg/dL Total Bilirubin < 0.2 L 0.2 0.2 0.2-1.0 mg/dL Aspartate Amino Transferase (AST) 9 L 10 L 20 13-40 U/L Alanine Aminotransferase (ALT) < 9 < 9 9 7-40 U/L Alkaline Phosphatase 75 83 91 46-116 U/L Total Protein 6.8 7.6 8.6 H 5.7-8.2 g/dL Albumin 2.9 L 3.2 3.8 3.2-4.8 g/dL Influenza Type A Antigen Negative Negative Influenza Type B Antigen Negative Negative SARS-CoV-2 Antigen (Rapid) Negative NEGATIVE Lipase 31 12-53 U/L Test 10/08/24 22:33 Range/Units POC Glucose 71 70-106 mg/dl Assessment IMP: 1) ESRD on HD 2) HTN 3) Anemia 2/2 CKD V 4) Dyslipidemia REC: - agree w current anti-htn regimen - HD today for solute removal/ UF as tolerated - discussed plan with Mrs. Gan. Plan discussed with: Patient, Spouse IAN NGUYEN MD Oct 10, 2024 17:27
--- NOTE | 2024-10-10 21:24 | DVHPN2 ---
Subjective Patient is doing well after her blood pressure is well controlled, she was seen during her HD session. She complains of epigastric pain that radiates down the center of her abdomen. This happens periodically, not colic, can happen at rest or exertion. No inciting event. Patient only came for blood pressure and the GI pain. She was still waiting to go back to [place] to continue her treatment from her home state ([place]) Reviewed: H&P Changes from previous H/P or p: No Changes General: Per HPI Objective Vitals Vital Signs Date Time Temp Pulse Resp B/P (MAP) Pulse Ox O2 Delivery O2 Flow Rate FiO2 10/10/24 21:00 97.4 79 16 144/97 (113) 97 97.4 10/10/24 08:00 Room Air* 0 21 Intake/Output Intake and Output 10/10/24 07:00 Intake Total 880 ml Balance 880 ml Intake Oral 880 ml # Voids 2 Exam GEN: Healthy appearing, well-developed, NAD. HEENT: NC/AT; MMM. CV: RRR, no m/r/g. Tunnel HD cath right shoulder LUNGS: CTAB, no w/r/c. ABD: Soft, NT/ND, NBS, no masses or organomegaly. EXT: skin Warm, well perfused. no rashes. No clubbing, cyanosis, or edema. NEURO: Ambulating with no limitations. No focal deficits. Medications Current Medications Medications Dose Ordered Sig/Susie Route Start Time Stop Time Status Last Admin Dose Admin Hydralazine HCl 10 mg Q6HP PRN IV 10/09/24 04:00 10/10/24 10:00 10 MG Sevelamer HCl 800 mg TIDWM PO 10/09/24 08:00 10/10/24 18:14 800 MG Multivit/Ca Carb/ B Cmplx/FA/Prenat 1 tab DAILY PO 10/09/24 10:00 10/10/24 10:01 1 TAB Acetaminophen/ Hydrocodone Bitart 1 tab Q4HP PRN PO 10/09/24 04:00 Ondansetron HCl 4 mg Q4HP PRN IV 10/09/24 04:00 10/09/24 12:50 4 MG Docusate Sodium 100 mg BIDPRN PRN PO 10/09/24 04:00 Acetaminophen 650 mg Q6HP PRN PO 10/09/24 04:00 Hydromorphone HCl 1 mg Q4HPRN PRN IV 10/09/24 05:15 10/09/24 12:51 1 MG Nitroglycerin 0.4 mg Q5MINP PRN SL 10/09/24 05:15 Morphine Sulfate 2 mg Q30M PRN IV 10/09/24 05:15 Hydralazine HCl 25 mg Q12HR PO 10/09/24 10:00 10/10/24 10:03 25 MG Amlodipine Besylate 10 mg DAILY PO 10/10/24 10:00 10/10/24 10:02 10 MG Carvedilol 6.25 mg Q12HR PO 10/09/24 22:00 10/10/24 10:03 6.25 MG Piperacillin Sod/ Tazobactam Sod 50 ml @ 12.5 mls/hr Q12HR IV 10/10/24 22:00 Famotidine 20 mg Q48H IV 10/12/24 10:00 Sucralfate 1 gm BID@0600,2200 GT 10/10/24 22:00 Laboratory Results Laboratory Tests 10/10/24 05:45 Chemistry Test 10/10/24 05:45 Albumin 2.9 g/dL (3.2-4.8) L Calcium Level 9.8 mg/dL (8.7-10.4) Total Protein 6.8 g/dL (5.7-8.2) LFT Test 10/10/24 05:45 Alanine Aminotransferase (ALT) < 9 U/L (7-40) Alkaline Phosphatase 75 U/L (46-116) Aspartate Amino Transferase (AST) 9 U/L (13-40) L Total Bilirubin < 0.2 mg/dL (0.2-1.0) L Labs and/or images reviewed: Labs reviewed by me, Image(s) reviewed by me Assessment/Plan Assessment/Plan update 10/10 - Patient is doing well after her blood pressure is well controlled, she was seen during her HD session. She complains of epigastric pain that radiates down the center of her abdomen. This happens periodically, not colic, can happen at rest or exertion. No inciting event. Patient only came for blood pressure and the GI pain. She was still waiting to go back to [place] to continue her treatment from her home state ([place]) # hypertensive emergency - given IV hydralazine for control, control home p.o. medications. Advance p.o. meds as needed # intractable abdominal pain- GERD/PUD possible. We will trial Pepcid b.i.d. with Carafate b.i.d. # ESRD on HD - nephro consulted continue on HD sessions # anemia due to CKD # dyslipidemia - continue home meds Diet renal DVT prophylaxis-Lovenox GI prophylaxis tolerating diet Med surge Full code Plan discussed with: Patient My Orders Orders - ALAYNA MAE MD Procedure Category Date Status Time Piperacillin-Tazob PHA 10/10/24 In Process 3.375gm (Zosyn 3.375g 22:00 Pharmacy NGOC 10/10/24 In Process Clarification: 12:04 Sucralfate Susp PHA 10/10/24 In Process (Carafate Susp) 22:00 Famotidine Injection PHA 10/12/24 In Process (Pepcid Injection) 10:00 Pharmacy NGOC 10/10/24 In Process Clarification: 17:52 Date of Service: Oct 10, 2024 Billing Provider: ALAYNA MAE MD Common Visit Codes: [id number] INP/OBS CARE(HIGH) ALAYNA MAE MD Oct 10, 2024 21:24
[2024-10-10] MEDS: SUCRALFATE 1 GM/10 ML ORAL SUSP GT SCH (22:24)
[2024-10-10] MEDS: PIPERACILLIN-TAZOB 3.375GM 50 ML IV SCH (22:27)
[2024-10-11] VITALS (8 sets, daily range): BP systolic 98–172; BP diastolic 59–111; PULSE 80–93; RESP 16–97; TEMP 36.3; O2SAT 92–100
[2024-10-11 07:30] LABS: Basophils # (auto) 0 10 ^3/uL (0-0.2); Basophils % (auto) 0.5 % (0.0-2.0); Eosinophils # (auto) 0.1 10 ^3/uL (0-0.8); Eosinophils % (auto) 3.3 % (0.0-7.0); Hematocrit 33.7 % (36.0-46.0); Lymphocytes # (auto) 1.3 10 ^3/uL (0.4-5.4); Lymphocytes % (auto) 29.3 % (10.0-50.0); Mean Corpuscular Hemoglobin 28.8 pg (28.0-32.0); Mean Corpuscular Hgb Conc. 32.6 g/dL (32.0-36.0); Mean Corpuscular Volume 88.3 fL (80.0-100.0); Monocytes # (auto) 0.5 10 ^3/uL (0-1.3); Monocytes % (auto) 10.9 % (0.0-12.0); Neutrophils # (auto) 2.4 10 ^3/uL (1.6-8.6); Nucleated Red Blood Cells % 0.1 %; Platelet Count (auto) 240 10^3/uL (140-450); Red Blood Cells 3.81 10^6/uL (4.0-5.20); Red Cell Distribution Width 18.9 % (11.8-14.3); White Blood Cell 4.4 10^3/uL (4.4-10.8)
[2024-10-11 08:02] LABS: Alkaline Phosphatase 85 U/L (46-116); Anion Gap 9 (5-15); BUN/Creatinine Ratio 2.3 (10.0-20.0); Blood Urea Nitrogen 20 mg/dL (9-23); Calcium 10.4 mg/dL (8.7-10.4); Carbon Dioxide 28 mmol/L (20-31); Glucose 84 mg/dL (74-106); Potassium 4.1 mmol/L (3.5-5.1)
[2024-10-11 08:03] LABS: Albumin 3.5 g/dL (3.2-4.8); Aspartate Aminotransferase 16 U/L (13-40); Total Protein 8.1 g/dL (5.7-8.2)
[2024-10-11 08:04] LABS: Alanine Aminotransferase < 9 U/L (7-40); Bilirubin, Total 0.2 mg/dL (0.2-1.0); Chloride 96 mmol/L (98-107); Sodium 133 mmol/L (136-145)
[2024-10-11] MEDS: DOXAZOSIN MESYL 2 MG TAB PO ONE (12:29)
[2024-10-11] MEDS ORDERED: SUCR1SUS26 PO (16:39)
[2024-10-11] MEDS ORDERED: AMLO1TAB23 PO (16:39)
[2024-10-11] MEDS ORDERED: FAMO20TA10 PO (16:39)
[2024-10-11] MEDS ORDERED: DOXA4TAB83 PO (16:39)
[2024-10-11] MEDS ORDERED: CARV6.2551 PO (16:39)
[2024-10-11] MEDS ORDERED: HYDR25TA87 PO (16:39)
--- NOTE | 2024-10-11 16:44 | DVHDS2 ---
Discharge Summary Date of Admission Oct 09, 2024 at 05:13 Date of Discharge: Oct 11, 2024 Labs/Diagnostic Data: Laboratory Results Test 10/11/24 05:47 10/10/24 04:00 10/08/24 23:24 10/08/24 22:33 White Blood Count 4.4 10^3/uL (4.4-10.8) Red Blood Count 3.81 10^6/uL (4.0-5.20) Hemoglobin 11.0 g/dL (12.2-16.2) Hematocrit 33.7 % (36.0-46.0) Mean Corpuscular Volume 88.3 fL (80.0-100.0) Mean Corpuscular Hemoglobin 28.8 pg (28.0-32.0) Mean Corpuscular Hemoglobin Concent 32.6 g/dL (32.0-36.0) Red Cell Distribution Width 18.9 % (11.8-14.3) Platelet Count 240 10^3/uL (140-450) Mean Platelet Volume 7.5 fL (6.9-10.8) Neutrophils (%) (Auto) 56.0 % (37.0-80.0) Lymphocytes (%) (Auto) 29.3 % (10.0-50.0) Monocytes (%) (Auto) 10.9 % (0.0-12.0) Eosinophils (%) (Auto) 3.3 % (0.0-7.0) Basophils (%) (Auto) 0.5 % (0.0-2.0) Neutrophils # (Auto) 2.4 10 ^3/uL (1.6-8.6) Lymphocytes # (Auto) 1.3 10 ^3/uL (0.4-5.4) Monocytes # (Auto) 0.5 10 ^3/uL (0-1.3) Eosinophils # (Auto) 0.1 10 ^3/uL (0-0.8) Basophils # (Auto) 0 10 ^3/uL (0-0.2) Nucleated Red Blood Cells 0.1 % Sodium Level 133 mmol/L (136-145) Potassium Level 4.1 mmol/L (3.5-5.1) Chloride Level 96 mmol/L (98-107) Carbon Dioxide Level 28 mmol/L (20-31) Anion Gap 9 (5-15) Blood Urea Nitrogen 20 mg/dL (9-23) Creatinine 8.54 mg/dL (0.550-1.02) Glomerular Filtration Rate Calc 6 mL/min (>90) BUN/Creatinine Ratio 2.3 (10.0-20.0) Serum Glucose 84 mg/dL (74-106) Calcium Level 10.4 mg/dL (8.7-10.4) Total Bilirubin 0.2 mg/dL (0.2-1.0) Aspartate Amino Transferase (AST) 16 U/L (13-40) Alanine Aminotransferase (ALT) < 9 U/L (7-40) Alkaline Phosphatase 85 U/L (46-116) Total Protein 8.1 g/dL (5.7-8.2) Albumin 3.5 g/dL (3.2-4.8) Influenza Type A Antigen Negative (Negative) Influenza Type B Antigen Negative (Negative) SARS-CoV-2 Antigen (Rapid) Negative (NEGATIVE) Lipase 31 U/L (12-53) POC Glucose 71 mg/dl (70-106) Other Laboratory Tests 10/11/24 05:47 Brief Hx & Hospital Course: 43F w PMHX ESRD on HD TTS (s/p failed R inguinal renal transplant), HTN, in ED w c/o abdominal pain and HTN x 1 day. Patient reports symptoms progressively get worse with nausea, vomiting, loss of appetite, malaise, fatigue, and generalized weakness. Patient is from [place] traveling to visit family. Patient was recently admitted for short duration due to volume overload due to ESRD with lack of HD. On presentation patient had highest blood pressure in ED at 177/112. CT Abdo without con with no acute findings, there is some concern of fat stranding around the feeling right renal transplant but that is expected given the chronic body rejection transplant. Patient has no clinical signs of sepsis. Blood is undo blood pressure is controlled with p.o. medications and utilization of several IV p.r.n. hydralazine injections. Nephrology consulted to resume HD sessions. Flu COVID rapid test are negative. Patient's abdominal pain is likely PUD, which is controlled with renal dosed Pepcid and Carafate. Blood pressure controlled plan for discharge with patient to follow up with [facility]. Diagnosis: hypertensive urgency, stabilized;, intractable abdominal pain due to likely PUD; resolved; intractable nausea with p.o. intolerance, resolved; retained failed renal transplant in right lower quadrant; history ESRD on HD TTS (right IJ tunnel cath); Discharge plan: - amlodipine 10mg daily, coreg 6.25mg 2x/day, doxazosin 4mg nightly, use hydralazine 25mg NEEDED for systolic BP> 170 to used every 6 hours - use pepcid 10mg everyother day and carafate 15mL 2x/day for 1 month for stomach pain (likely stomach ulcer, hold off spice/caffiene) - f/u PCP, nephrology and GI in [facility] Visitation and planning required 35 minutes Condition at Discharge: Fair Final Diagnosis/Problems List hypertensive urgency, stabilized;, intractable abdominal pain due to likely PUD; resolved; intractable nausea with p.o. intolerance, resolved; retained failed renal transplant in right lower quadrant; history ESRD on HD TTS (right IJ tunnel cath); Discharge Disposition: Home Discharge Instruct/Medications Diet: Renal Activity: No Restrictions, As Tolerated Follow Up/Referral: PCP, nephrology and GI in [facility] Medications: as below Discharge Statement: "Patient was advised to return to the ER or call 911 if any headaches, dizziness, shortness of breath, chest pain, abdominal pain, bleeding, fevers, or worsening of medical condition. Patient was counseled about treatment plan, medications, possible side effects, patientverbalized understanding. All questions were answered to the best of my ability. This discharge took greater then 30 minutes in planning, reviewing documentation, counseling the patient, and discussing with other team members." ASSESSMENT ASSESSMENT Assessment hypertensive urgency, stabilized;, intractable abdominal pain due to likely PUD; resolved; intractable nausea with p.o. intolerance, resolved; retained failed renal transplant in right lower quadrant; history ESRD on HD TTS (right IJ tunnel cath); Date of Service: Oct 11, 2024 Billing Provider: ALAYNA MAE MD Common Visit Codes: 27332-KSY/OBS DISCH DAY >30min ALAYNA MAE MD Oct 11, 2024 16:44
--- NOTE | 2024-10-11 16:46 | DVHPN2 ---
Progress Note Date Seen: Oct 11, 2024 Medical Necessity Reason Pt with a Central, PICC or Fol: No Subjective Patient reports: No new complaints Other Systems: Patient seen and examined by myself in f/u today Objective vital signs Vital Sign Date Time Temp Pulse Resp B/P (MAP) Pulse Ox O2 Delivery O2 Flow Rate FiO2 10/11/24 14:59 98/59 (72) 10/11/24 13:21 80 10/11/24 13:00 97.9 17 92 97.9 10/10/24 20:00 Room Air* 0 21 Total Intake and Output 10/10/24 10/10/24 10/11/24 15:00 23:00 07:00 Intake Total 650 ml 250 ml Balance 650 ml 250 ml medications Current Medications Medications Dose Ordered Sig/Susie Route Start Time Stop Time Status Last Admin Dose Admin Hydralazine HCl 10 mg Q6HP PRN IV 10/09/24 04:00 10/11/24 12:22 10 MG Sevelamer HCl 800 mg TIDWM PO 10/09/24 08:00 10/11/24 12:21 800 MG Multivit/Ca Carb/ B Cmplx/FA/Prenat 1 tab DAILY PO 10/09/24 10:00 10/11/24 12:20 1 TAB Acetaminophen/ Hydrocodone Bitart 1 tab Q4HP PRN PO 10/09/24 04:00 Ondansetron HCl 4 mg Q4HP PRN IV 10/09/24 04:00 10/09/24 12:50 4 MG Docusate Sodium 100 mg BIDPRN PRN PO 10/09/24 04:00 Acetaminophen 650 mg Q6HP PRN PO 10/09/24 04:00 Hydromorphone HCl 1 mg Q4HPRN PRN IV 10/09/24 05:15 10/09/24 12:51 1 MG Nitroglycerin 0.4 mg Q5MINP PRN SL 10/09/24 05:15 Morphine Sulfate 2 mg Q30M PRN IV 10/09/24 05:15 Amlodipine Besylate 10 mg DAILY PO 10/10/24 10:00 10/11/24 12:21 10 MG Carvedilol 6.25 mg Q12HR PO 10/09/24 22:00 10/11/24 12:21 6.25 MG Piperacillin Sod/ Tazobactam Sod 50 ml @ 12.5 mls/hr Q12HR IV 10/10/24 22:00 10/11/24 12:20 12.5 MLS/HR Famotidine 20 mg Q48H IV 10/12/24 10:00 Sucralfate 1 gm BID@0600,2200 GT 10/10/24 22:00 10/11/24 07:31 1 GM Doxazosin Mesylate 4 mg HS PO 10/12/24 22:00 Examination: LUNGS:Normal, CVS:Normal, MSK:Normal laboratory and microbiology Laboratory Tests 10/11/24 05:47 Test 10/11/24 05:47 Range/Units Serum Glucose 84 74-106 mg/dL Problem List/Assessment/Plan Problem List/Assessment/Plan 1) ESRD on HD, out of area 2) HTN 3) Anemia 2/2 CKD V, well compensated 4) Dyslipidemia REC: HD tomorrow Resume home meds Renal diet \SW for outpatient HD chair time Plan discussed with: Patient My Orders My Orders Orders - EDIE HERMAN MD Procedure Category Date Status Time Hemodialysis Orders ORDERS 10/12/24 Transmitted 07:00 Dialysis Nursing NGOC 10/12/24 In Process Message 07:00 Heparin Sodium PHA 10/12/24 In Process (Porcine) 07:00 Heparin Sodium PHA 10/12/24 In Process (Porcine) 07:00 Sodium Chloride 0.9% PHA 10/12/24 In Process 07:00 Document Fluid Input NGOC 10/12/24 In Process And Outpu 07:00 Epoetin Gurdeep-Epbx PHA 10/12/24 In Process (Retacrit) 21:00 EDIE HERMAN MD Oct 11, 2024 16:46
[2024-10-12] MEDS ORDERED: SODIUM CHL 0.9% 1000 ML BAG XX ONE (07:00)
[2024-10-12] MEDS ORDERED: FAMOTIDINE (10MG/ML) 2ML VL IV SCH (10:00)
[2024-10-12] MEDS ORDERED: EPOETIN ALFA-EPBX 10,000 UNIT/1ML VIAL SC ONE (21:00)
[2024-10-12] MEDS ORDERED: DOXAZOSIN MESYL 2 MG TAB PO SCH (22:00)
== END 2024-10-11 19:39 | disposition home or self-care (01) | DRG 383 ==
LOC: ER 21:43 → TELE 10-09 03:31 → TELE-E-ADS 10-09 09:00
PROVIDERS: ADMIT Student in an Organized Health Care Education/Training Program; ATTEND Student in an Organized Health Care Education/Training Program
PROC: 5A1D70Z Performance of Urinary Filtration, Intermittent, Less than 6 Hours Per Day (ICD-10-PCS; principal; 2024-10-10)
DX: K27.9 Peptic ulcer, site unspecified, unspecified as acute or chronic, without hemorrhage or perforation (principal); N18.6 End stage renal disease; I16.1 Hypertensive emergency; I12.0 Hypertensive chronic kidney disease with stage 5 chronic kidney disease or end stage renal disease; N12 Tubulo-interstitial nephritis, not specified as acute or chronic; T86.12 Kidney transplant failure; Z20.822 Contact with and (suspected) exposure to COVID-19; K21.9 Gastro-esophageal reflux disease without esophagitis; D63.1 Anemia in chronic kidney disease; E78.5 Hyperlipidemia, unspecified; Z99.2 Dependence on renal dialysis; Z83.3 Family history of diabetes mellitus; Y84.8 Other medical procedures as the cause of abnormal reaction of the patient, or of later complication, without mention of misadventure at the time of the procedure; Y92.89 Other specified places as the place of occurrence of the external cause
CPT/HCPCS: 36415; 74176; 80053; 82962; 83690; 85025; 87426; 87804; 90935; G0378; J1642; J2405; J2543; J3490